=== PATIENT | female | born 1950 | race Caucasian/White ===

== ENCOUNTER → 2017-11-25 08:36 | Outpatient (CLI) | payer OTHER, SELFPAY ==
--- NOTE | 2017-11-25 08:38 | RAD_ITS ---
STUDY: X-RAY - RIGHT KNEE REASON FOR EXAM: Female, 67 years old. Knee pain. No known trauma. TECHNIQUE: 5 view(s) of the knee. COMPARISON: None. FINDINGS: There is mild generalized osteopenia. Normal visualized distal femur. Normal visualized proximal tibia and fibula. Normal proximal tibiofibular articulation. There is moderate arthrosis of the medial compartment. There is mild arthrosis of the lateral compartment. There is moderate arthrosis of the patellofemoral compartment. The soft tissue structures are unremarkable. RAD/Knee 4 or More Views IMPRESSION: Generalized osteopenia with tricompartmental arthrosis as described. Electronically Signed: Juancho Li MD at 16:21 EDT , Service support ,
== END ==
PROVIDERS: Family Provider Family Medicine; PCP Family Medicine; Visit Provider Orthopaedic Surgery
DX: M25.561 Pain in right knee (principal)
CPT/HCPCS: 73564

== ENCOUNTER → 2018-03-25 07:00 | Outpatient (CLI) | payer OTHER, SELFPAY ==
--- NOTE | 2018-03-25 07:00 | BI_ITS ---
MAMMOGRAPHY - BILATERAL SCREENING REASON FOR EXAM: Female, 67 years old. Routine annual screening examination. PERTINENT HISTORY: Sisters with breast cancer. Bilateral excisional breast biopsies. TECHNIQUE: Digital bilateral breast collette (3D mammographic acquisition) in the CC and MLO projections. 2-D mediolateral oblique (MLO) and craniocaudad (CC) views of both breasts were obtained. CAD: Full Field Digital Mammography with Computer Added Detection was performed. COMPARISON: Comparison is made with prior examination dated April 06, 2017. FINDINGS: Breast Composition: The breasts are heterogeneously dense, which may obscure small masses. Focal area of the calcifications in the deep superior aspect of the right breast as seen on the mediolateral oblique view only. These have increased in number as compared to prior study. The patient will be recalled for additional views including a 90 degree lateral view of the right breast as well as an exaggerated craniocaudad view of the right breast with magnification views. No other significant abnormalities are identified. BI/SCREENING MAMM (CAD), BILAT IMPRESSION: Increased number of calcifications in the deep upper portion of the right breast as described. This is not well seen on the craniocaudad view. The patient will be recalled for additional views. Recall Side: Right Breast ASSESSMENT CATEGORY: BIRADS Category 0: Incomplete. Need additional imaging evaluation. A letter regarding these results will be sent to the patient by the facility within 30 days. Approximately 10% of breast cancers are not detected by mammography. A normal mammogram should not delay biopsy of a clinically suspicious abnormality. [id number] Electronically Signed: Cal De Los Santos MD at 8:08 EST Tel [phone], Service support ,
== END ==
PROVIDERS: Family Provider Family Medicine; PCP Family Medicine; Referring Provider Family Medicine; Visit Provider Family Medicine
DX: Z12.31 Encounter for screening mammogram for malignant neoplasm of breast (principal)
CPT/HCPCS: 77063; 77067

== ENCOUNTER → 2018-03-28 14:02 | Outpatient (CLI) | payer OTHER, SELFPAY ==
--- NOTE | 2018-03-28 14:12 | BI_ITS ---
MAMMOGRAPHY - UNILATERAL DIAGNOSTIC: RIGHT BREAST REASON FOR EXAM: Female, 67 years old. Abnormal screening mammogram. PERTINENT HISTORY: Sisters with breast cancer. TECHNIQUE: Compression views of the right breast in the mediolateral oblique and craniocaudad views are obtained. Exaggerated craniocaudad view was obtained as well. CAD: Full Field Digital Mammography with Computer Added Detection was performed. COMPARISON: Comparison is made with prior mammogram dated March 25, 2018. FINDINGS: Breast Composition: The breasts are heterogeneously dense, which may obscure small masses. Once again, calcifications are seen in the superior deep outer aspect of the right breast. A biopsy is recommended for further evaluation. No other significant abnormalities are identified. BI/DIAG MAMM W/CAD, UNILAT IMPRESSION: Microcalcifications once again seen as described. A biopsy recommended for further evaluation. ASSESSMENT CATEGORY: BIRADS Category 4: Suspicious - Biopsy Should Be Considered. A letter regarding these results will be sent to the patient by the facility within 30 days. Approximately 10% of breast cancers are not detected by mammography. A normal mammogram should not delay biopsy of a clinically suspicious abnormality. Electronically Signed: Cal De Los Santos MD at 15:19 EST Tel [phone], Service support ,
== END ==
PROVIDERS: Family Provider Family Medicine; PCP Family Medicine; Referring Provider Family Medicine; Visit Provider Family Medicine
DX: R92.8 Other abnormal and inconclusive findings on diagnostic imaging of breast (principal)
CPT/HCPCS: 77065

== ENCOUNTER 2018-04-18 09:55 | Day surgery (SDC) | payer OTHER, SELFPAY ==
[2017-11-25 08:52] VITALS: BMI 34.5
[2018-04-13 13:44] LABS: Hematocrit 42.9 % (37-47); Hemoglobin 14.6 g/dl (12.0-15.0); Mean Corpuscular Hgb 30.7 pg (27.0-32.0); Mean Corpuscular Volume 90.1 fL (81-99); Mean Platelet Vol. 9.6 fl (6.2-12.0); Platelet Count 318 K/mm3 (150-450); RBC Distribution Width CV 12.9 % (11.6-14.6); RBC Distribution Width SD 42.2 fl (35.1-43.9); Red Blood Count 4.76 M/mm3 (4.2-5.4); White Blood Count 9.3 K/mm3 (4.4-11.0)
[2018-04-13 13:46] LABS: Scan Indicated on CBC? Y/N NO
[2018-04-13 13:50] LABS: Prothrombin Time (Protime)PT. 13.5 SECONDS (11.7-14.9)
[2018-04-13 13:51] LABS: Partial Thromboplast Time 32.2 Seconds (24.1-36.2)
[2018-04-13 14:02] LABS: AST(SGOT) 15 U/L (15-37); Alanine Aminotransfer ALT/SGPT 32 U/L (13-56); Alkaline Phosphatase 90 U/L (45-117); Anion Gap 8 (5-15); BUN 16 mg/dL (7-18); BUN/Creat Ratio 20.9 RATIO (10-20); Calcium,Total 9.4 mg/dL (8.5-10.1); Chloride 101 mmol/L (98-107); Creatinine, Serum 0.76 mg/dL (0.55-1.02); EST Glomerular Filtration Rate 81 mL/min (>60); Est Glom Filt Rate - Afr Amer 97 mL/min (>60); Globulin 3.9 g/dL (2.2-4.2); Glucose 88 mg/dL (74-106); Potassium 2.9 mmol/L (3.5-5.1); Protein, Total 7.9 g/dL (6.4-8.2); Sodium Level 139 mmol/L (136-145)
--- NOTE | 2018-04-16 14:45 | PCM.HP.BLA ---
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 -- Smptomatic Prolapse of Vagina -- Marine is referred per Dr Clement for vaginal prolapse. Pt relates she has been having difficulty with bowel movements. Pt relates she starts to go and then has to insert a finger into her vagina to be able to finish her BM. Pt had a KEARA/LSO per Dr Brower in 1993, and a vaginal wall repair per Dr Barrera in approx 1999. Associated signs and symptoms are Difficulty moving bowels.; Associated signs and symptoms are uses fingers every time. Additional comments are: had prior hyst in early then ?anterior repair per Dr. Barrera in 1999. MEDICATIONS HISTORY: Current medications prescribed by our practice are: 1. Estrace 0.01% (0.1 mg/gram) vaginal cream, one half gram per vagina twice weekly at hs Patient is also takin. triamterene 75 mg-hydrochlorothiazide 50 mg tablet, 3x/week 2. atorvastatin 20 mg tablet, One pill by mouth once a day ALLERGIES: No Known Drug Allergies Infections - Chicken pox childhood Illnesses - no serious past illnesses Accidents - None Hospitalizations - Childbirth and see surgery Review of Systems: GENERAL - Denies fever, or chills SKIN - Denies skin changes EYES - Denies visual changes EARS - Denies difficulty hearing NOSE - Denies nasal congestion or bleeding MOUTH - Denies sore throat or difficulty swallowing NECK - Denies pain or swelling RESPIRATORY - Denies shortness of breath or wheezing CARDIOVASCULAR - Denies palpitations or chest pain GASTROINTESTINAL - Denies nausea, vomiting, diarrhea, constipation GENITOURINARY - Denies dysuria, frequency of urination, incontinence of urine MUSCULOSKELETAL - Denies joint or muscle pain NEUROLOGICAL - Denies localized numbness or weakness PSYCHIATRIC - Denies depression or anxiety ENDOCRINE - Denies heat or cold intolerance, weight loss or gain HEMATO-IMMUNOLOGIC - Denies excesive bleeding with cuts SOCIAL HISTORY: Alcohol Use - denies drinking Smoking - denies smoking Diet - balanced Diet Lifestyle - moderate stress lifestyle and Exercise - regular Seat Belt Use - always 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 Basal Cell Carcinoma removed 2017 2. Tonsillectomy Dec 1968 3. KEARA/RSO, Feb 1992 ; MAGED 4. Appendectomy Dec 1993 5. cholecystectomy, Feb 1997 6. Faschial Release Rt [id number] 7. Multiple Breast Biopsies 8. Rt Rotator cuff repaired 2013 PHYSICAL EXAM BP- 136/84 Sitting, Right arm, regular cuff Weight- 178.47775 lbs Height- 61.5 inch BMI:33.16 CONSTITUTIONAL - NAD, well nourished, and well developed SKIN - No rash, lesions, or ulcers HEENT - Normocephalic, PERRLA, EOMI NECK - No nodes, no nuchal rigidity and thyroid normal size and texture LYMPH NODES - Palpation of lymph nodes in neck and groins within normal limits LUNGS - CTA x2 without wheezes, crackles or rales CARDIAC - Regular rate and rhythm without rubs, murmurs, or gallops ABDOMEN - Without hepatosplenomegaly, distention, masses, rebound, or guarding; normal bowel sounds; no hernias EXTREMITIES - No edema or calf tenderness NEUROLOGICAL - Cranial nerves II-XII grossly intact PSYCHIATRIC - A and O to time, place, person, mood and affect External Genital Vagina - non-tender without lesions Urethra/Urethral Meatus - non-tender Bladder - non-tender Vagina - loss of rugae and cystocele to introitus starting half way up vagina--well supported lower vagina; similar with rectocele but to within only 2 cm of introitus; ?enterocele Cervix - Prior hysterectomy-well healed vaginal cuff Uterus - prior hysterectomy-absent Adnexa - clear without masses or tenderness ASSESSMENT/PLAN: 1. Cystocele Midline, Rectocele and Vaginal Enterocele Discussed options including pessary use versus proceeding with AP Repair. Wants surgery. Discussed RBAs and will start intravaginal HRT. Not sexually active.
[2018-04-18] VITALS (11 sets, daily range): BP systolic 108–134; BP diastolic 51–64; PULSE 53–76; RESP 16–18; TEMP 36.3–37.4; O2SAT 92–100; BMI 32.2
[2018-04-18 10:38] LABS: Potassium 3.1 mmol/L (3.5-5.1)
--- NOTE | 2018-04-18 12:40 | VAGMU_PTH ---
PATIENT: TORI STYLES LOC: [facility] U#:[id number] AGE/SX: 67/F ROOM: RE04/18/[address]: Dr. Abebe Curz MD : 1950 BED: DIS: 04/19/2018 SPEC #: [id number] RECD: 04/19/18 10:42 STATUS: CHRISTIANO REFreida #: [id number] YOKASTA: 04/18/18 12:[address]: Abebe Cruz DEPT: SURGICAL PATHOLOGY RECD BY: Milo Barton ENTERED: 04/19/18 11:51 SP TYPE: VAG MUCOSA OT DR: Dr. Alex Clement MD Tissues: Vagina, NOS Procedures: Surgery Specimen Level II HEADER OPERATION: Anterior and posterior repair PRE-OP DIAGNOSIS: Cystocele, rectocele, vaginal enterocele TISSUE SUBMITTED: Vaginal mucosa MICROSCOPIC DIAGNOSIS Vaginal mucosa, anterior and posterior repair: Mild chronic inflammation. Focal parakeratosis and hyperkeratosis. AM:low 04/20/18 MICROSCOPIC DESCRIPTION Slides are reviewed. GROSS DESCRIPTION Received in fixative is one container labeled with the patient's name and designated vaginal mucosa. The specimen consists of five variable sized pieces of peerz mucosal tissue that in aggregate measure 4.5 x 4.5 x 0.5 cm. Review Nurse sections are submitted in one cassette. / SJ:low 04/19/18 TC:5 CPT: 15124
--- NOTE | 2018-04-18 15:55 | PCM.OPRPT ---
Report of Operation Date of Procedure: 04/18/18 Pre-Operative Diagnosis: Vaginal Vault Prolapse Post-Operative Diagnosis: Vaginal Vault Prolapse Surgery/Procedure Performed:: Anterior and Posterior Repair Description of Surgical Findings:: Cystocele which protruded to within 1 cm of the vaginal introitus. Small rectocele. fish hatchery laborer: Eugenie Weldon Type of Anesthesia:: General Anesthesiologist: Navarro Maldonado Specimen's removed: Vaginal Mucosa Drains: Addison to straight drain Estimated Blood Loss (mL): 50 cc Fluids Replaced: Crystalloid Description of Procedure: Surgeon: Abebe Cruz MD, [facility] OG Indications: This is a 67-year-old patient who is been having problems with prolapse and needing to use her fingers to help defecate. Conservative measures have not been helpful. Given this the patient desires that we proceed the above procedure. She has been counseled regarding the risk and indications of this procedure including the possibility of bleeding, infection, and injury to surrounding structures such as bowel bladder. All questions were answered. Procedure: Patient was taken to the operating room where after induction of general anesthesia she was placed in the dorsal lithotomy position and prepped and draped in the usual sterile fashion. The bladder was drained of approximately 50 cc of clear yellow urine with a Addison catheter which was left in place. Anterior vaginal mucosa was undermined and divided and then imbricated toward the midline with interrupted 0 Vicryl sutures. Vaginal mucosa was trimmed and then closed with interrupted 2-0 chromic suture. Vaginal cuff was then closed front to back with interrupted [id number] 0 Vicryl suture. Hemostasis was noted. Attention was turned toward the posterior repair portion of the procedure. Remnants of the hymenal ring were grasped with Allises and a V-shaped incision was made in the perineum. Rectovaginal mucosa was then undermined divided and then imbricated toward the midline with interrupted 0 Vicryl suture. Vaginal mucosa was trimmed and then closed with running locked 2-0 chromic suture. Remnants of the bulbocavernosus muscles were identified and brought toward the midline with a single [id number] 0 Vicryl suture and perineum was closed in the usual fashion with running and subcuticular, and ioxocz-gt-uykem 2-0 chromic suture. Hemostasis was noted. Addison catheter was opened and clear yellow urine was noted. Vagina was packed with iodoform tape. Patient tolerated the procedure well was taken to recovery room in satisfactory condition; sponge instrument and needle counts were all reportedly correct. Estimated blood loss for the case was 50 cc. Cefotan 2 g IV was given prior to beginning the operative procedure. There were no apparent complications of the surgery. Grafts/Implants Used: None - Complications None - Admit VTE Documentation VTE Present on Admission: Yes VTE Mechan Device Prophylaxis: SCD's VTE Pharm Prophylaxis ordered?: Yes
--- NOTE | 2018-04-18 16:00 | OP.PCM_ITS ---
Report of Operation Date of Procedure: 04/18/18 Pre-Operative Diagnosis: Vaginal Vault Prolapse Post-Operative Diagnosis: Vaginal Vault Prolapse Surgery/Procedure Performed:: Anterior and Posterior Repair Description of Surgical Findings:: Cystocele which protruded to within 1 cm of the vaginal introitus. Small rectocele. labor and delivery registered nurse: Eugenie Weldon Type of Anesthesia:: General Anesthesiologist: Navarro Maldonado Specimen's removed: Vaginal Mucosa Drains: Addison to straight drain Estimated Blood Loss (mL): 50 cc Fluids Replaced: Crystalloid Description of Procedure: Surgeon: Abebe Cruz MD, [facility] OG Indications: This is a 67-year-old patient who is been having problems with prolapse and needing to use her fingers to help defecate. Conservative measures have not been helpful. Given this the patient desires that we proceed the above procedure. She has been counseled regarding the risk and indications of this procedure including the possibility of bleeding, infection, and injury to surrounding structures such as bowel bladder. All questions were answered. Procedure: Patient was taken to the operating room where after induction of general anesthesia she was placed in the dorsal lithotomy position and prepped and draped in the usual sterile fashion. The bladder was drained of approximately 50 cc of clear yellow urine with a Addison catheter which was left in place. Anterior vaginal mucosa was undermined and divided and then imbricated toward the midline with interrupted 0 Vicryl sutures. Vaginal mucosa was trimmed and then closed with interrupted 2-0 chromic suture. Vaginal cuff was then closed front to back with interrupted [id number] 0 Vicryl suture. Hemostasis was noted. Attention was turned toward the posterior repair portion of the procedure. Remnants of the hymenal ring were grasped with Allises and a V-shaped incision was made in the perineum. Rectovaginal mucosa was then undermined divided and then imbricated toward the midline with interrupted 0 Vicryl suture. Vaginal mucosa was trimmed and then closed with running locked 2-0 chromic suture. Remnants of the bulbocavernosus muscles were identified and brought toward the midline with a single [id number]-[id number] 0 Vicryl suture and perineum was closed in the usual fashion with running and subcuticular, and dcmwgm-vz-jepns 2-0 chromic suture. Hemostasis was noted. Addison catheter was opened and clear yellow urine was noted. Vagina was packed with iodoform tape. Patient tolerated the procedure well was taken to recovery room in satisfactory condition; sponge instrument and needle counts were all reportedly correct. Estimated blood loss for the case was 50 cc. Cefotan 2 g IV was given prior to beginning the operative procedure. There were no apparent complications of the surgery. Grafts/Implants Used: None - Complications None - Admit VTE Documentation VTE Present on Admission: Yes VTE Mechan Device Prophylaxis: SCD's VTE Pharm Prophylaxis ordered?: Yes
--- NOTE | 2018-04-18 16:01 | DCINST_ITS ---
Discharge Diet: No Restrictions Discharge Activity: Return to Normal Activity, May Not Drive - while taking narcotic pain medications., May Shower May resume sexual activity in: 6-8 weeks Call your doctor if your incision/area has: Continuous Slow Oozing, Sudden Increased Bleeding, Increased Pain/ Swelling, Increased Redness, Foul Smelling Discharge Call your doctor if you observe: Fever of 101 or Higher, Inability to urinate, Inability to have a bowel movement, Using more than one pad per hour Allergies/Adverse Reactions: Allergies adhesive tape Adverse Reaction (Verified 04/11/18 14:32) redness Medications to take at Discharge triamterene 75 mg-hydrochlorothiazide 50 mg tablet 1 tab PO DAILY tab 11/25/17 Atorvastatin Calcium [Lipitor] 20 mg PO QHS 04/11/18 Multivitamin [Multiple Vitamins] 1 each PO DAILY 04/11/18 Potassium Chloride [K-Dur] 20 meq PO BID 04/15/18 Docusate Sodium [Colace] 100 mg PO BID PRN PRN #60 cap 04/18/18 Oxycodone [Oxyir] 5 mg PO Q6H PRN PRN 7 Days #14 tab 04/18/18 The following prescriptions were given: Oxycodone [Oxyir] 5 mg PO Q6H PRN PRN 7 Days #14 tab PRN Reason: Severe Pain (-02/23) Docusate Sodium [Colace] 100 mg PO BID PRN PRN #60 cap PRN Reason: Constipation Orders to be completed after discharge: Potassium Time Frame: 04/18/18, Location: Laboratory Primary Care Physician: Alex Clement MD [Primary Care Provider] - Test Results: Test results from this visit will be discussed in further detail at your follow- up appointment, if applicable. Please Follow Up With: Abebe Cruz MD When: 2-3 weeks
[2018-04-18] MEDS: Dextrose 5%-Lactated Ringers 1,000 ML 125 ML IV ×2 (16:57→21:53)
[2018-04-18] MEDS: Enoxaparin 30 MG/0.3 ML Syringe SC (20:11)
[2018-04-18] MEDS: Atorvastatin Calcium 20 MG Tablet PO (20:58)
[2018-04-18] MEDS: Ketorolac 15 MG/ML Vial IV (20:58)
--- NOTE | 2018-04-18 22:48 | NURSING ---
PT UP TO BATHROOM WITH ASST OF 1. GAIT STEADY. DENIES ANY COMPLAINTS
[2018-04-19] MEDS: Ketorolac 15 MG/ML Vial IV (02:56)
[2018-04-19 03:27] VITALS: BP 111/59; PULSE 56; RESP 18; TEMP 36.4; O2SAT 94
[2018-04-19 06:01] LABS: Hematocrit 35.1 % (37-47); Hemoglobin 11.7 g/dl (12.0-15.0); Mean Corp Hgb Conc 33.3 g/gl (32-36); Mean Corpuscular Hgb 30.6 pg (27.0-32.0); Mean Corpuscular Volume 91.9 fL (81-99); Mean Platelet Vol. 9.3 fl (6.2-12.0); Platelet Count 241 K/mm3 (150-450); RBC Distribution Width CV 12.3 % (11.6-14.6); RBC Distribution Width SD 40.2 fl (35.1-43.9); Red Blood Count 3.82 M/mm3 (4.2-5.4); White Blood Count 11.2 K/mm3 (4.4-11.0)
[2018-04-19 06:08] LABS: Scan Indicated on CBC? Y/N NO
[2018-04-19 06:11] LABS: Creatinine, Serum 0.95 mg/dL (0.55-1.02); EST Glomerular Filtration Rate 63 mL/min (>60); Est Glom Filt Rate - Afr Amer 76 mL/min (>60); Estimated Creatinine Clearance 46.69 ml/min
[2018-04-19 07:10] VITALS: O2SAT 92
--- NOTE | 2018-04-19 08:20 | PCM.PN.OB ---
Subjective: Patient without complaints. Tolerating diet well. Minimal vaginal bleeding overnight. Pain well controlled. - Physical Exam Vital Signs AF, VSS Temp Pulse Resp BP Pulse Ox 97.5 F L 56 L 18 111/59 L 94 04/19/18 03:27 04/19/18 03:27 04/19/18 03:27 04/19/18 03:27 04/19/18 03:27 Oxygen Flow Rate (L/min) 1 Oxygen Delivery Method Room Air Weight: 176 lb 5.917 oz Body Mass Index (BMI) 32.2 Intake and Output for Last 24 Hours 04/17/18 04/18/18 04/19/18 23:59 23:59 23:59 Intake Total 2745 / 2745 3007 / 3007 Output Total 235 / 235 1800 / 1800 Balance 2510 / 2510 1207 / 1207 Laboratory Tests Past 24 Hrs 04/18/18 04/19/18 04/19/18 10:15 05:40 05:40 WBC 11.2 H RBC 3.82 L Hgb 11.7 L Hct 35.1 L MCV 91.9 MCH 30.6 MCHC 33.3 RDW 12.3 RDW Differential 40.2 Plt Count 241 MPV 9.3 Potassium 3.1 L Creatinine 0.95 Estim Creat Clear Calc 46.69 Est GFR (MDRD) Af Amer 76 Est GFR (MDRD) Non-Af 63 Vaginal pack removed with minimal bleeding noted. Hemoglobin and creatinine okay. Medical Necessity - Tobacco Use Smoking Status: Never smoker Tobacco Use: Non-smoker Assessment/Plan Doing well postoperative day #1 status post anterior posterior repair. We will release to home with routine instructions.
[2018-04-19 08:45] VITALS: BP 132/54; PULSE 73; RESP 18; TEMP 36.7; O2SAT 96
[2018-04-19] MEDS: Triamterene 75MG/Hctz 50MG Tablet 1 TABLET PO (08:47)
[2018-04-19] MEDS: Ketorolac 10 MG Tablet PO (10:13)
--- OUTSIDE RECORDS SUMMARY | 2018-06-11 14:41 | XMS RPT_ITS ---
:1950 Author Organization OHIP Support Name Relationship Address Phone MARIAJOSE STYLES Unavailable [address] + [place] [address] MARIAJOSE STYLES Unavailable [address] + [place] [address] MARIAJOSE STYLES Unavailable [address] + [place] [address] MARIAJOSE STYLES Unavailable [address] + [place] [address] MEG BUI Un[address] + [place] [address] MARY ALICE STYLES Unavailable [address] + [place] [address] [employer] Unavailable [address] + [place] [address] MARIAJOSE STYLES Unavailable [address] + [place] [address] MARIAJOSE STYLES Unavailable [address] + [place] [address] MARY ALICE STYLES Unavailable [address] + [place] [address] MARY ALICE STYLES Unavailable [address] [place] [address] NOT GIVEN Unavailable Unavailable Unavailable ME[facility] B[facility] Unavailable [address] + [place] [address] MARY ALICE STYLES Unavailable [address] + [place] [address] [employer] Unavailable [address] + [place] [address] ME[employer] B[employer] Un[address] + [place] [address] MARY ALICE STYLES Unavailable [address] + [place] [address] [employer] Unavailable [address] + [place] [address] MARY ALICE STYLES Unavailable [address] + [place] [address] MARY ALICE STYLES Unavailable [place] [address] NOT GIVEN Unavailable Unavailable Unavailable MARY ALICE STYLES Unavailable [address] + [place] [address] MARY ALICE STYLES Unavailable [address] [place] [address] NOT GIVEN Unavailable Unavailable Unavailable HAO [facility] Unavailable [address] + [place] [address] MARY ALICE STYLES Unavailable [address] + [place] [address] [employer] Unavailable [address] + [place] [address] HAO, MEG Unavailable [address] + [place] [address] MARY ALICE STYLES Unavailable [address] + [place] [address] [employer] Unavailable [address] + [place] [address] MARY ALICE STYLES Unavailable [address] + [place] [address] MARY ALICE STYLES Unavailable [address] [place] [address] NOT GIVEN Unavailable Unavailable Unavailable Care Team Providers Name Role Phone LOBO, DENIZ A Admitting Unavailable LOBO, DENIZ A Attending Unavailable LOBO, DENIZ A Primary Care Unavailable LOBO, DENIZ A Consulting Unavailable PROVIDER, UNKNOWN Consulting Unavailable PROVIDER, UNKNOWN Consulting Unavailable PROVIDER, UNKNOWN Consulting Unavailable LOBO, DENIZ A Admitting Unavailable LOBO, DENIZ A Attending Unavailable LOBO, DENIZ A Primary Care Unavailable LOBO, DENIZ A Consulting Unavailable PROVIDER, UNKNOWN Consulting Unavailable PROVIDER, UNKNOWN Consulting Unavailable PROVIDER, UNKNOWN Consulting Unavailable LOBO, DENIZ A Admitting Unavailable LOBO, DENIZ A Attending Unavailable LOBO, DENIZ A Primary Care Unavailable LOBO, DENIZ A Consulting Unavailable PROVIDER, UNKNOWN Consulting Unavailable PROVIDER, UNKNOWN Consulting Unavailable PROVIDER, UNKNOWN Consulting Unavailable ARNULFO, LLOYD Admitting Unavailable ARNULFO, LLOYD Attending Unavailable ARNULFO, LLOYD Primary Care Unavailable LOBO, DENIZ A Consulting Unavailable PROVIDER, UNKNOWN Consulting Unavailable PROVIDER, UNKNOWN Consulting Unavailable PROVIDER, UNKNOWN Consulting Unavailable MILIND ALBERTS Attending Unavailable DENIZ LOBO MD Primary Care Unavailable MILIND ALBERTS Attending Unavailable LASHELL FERRER, DENIZ Paez Primary Care Unavailable MILIND ALBERTS Attending Unavailable DENIZ LOBO MD Primary Care Unavailable Katy Molina Attending Unavailable Lashell, Deniz Referring Unavailable Chicorelli, Katy Attending Unavailable Chicorelli, Katy Referring Unavailable Lobo, Deniz Primary Care Unavailable Lobo, Deniz Attending Unavailable Lobo, Deniz Referring Unavailable Lobo, Deniz Primary Care Unavailable Lobo, Deniz Attending Unavailable Lobo, Deniz Referring Unavailable Lobo, Deniz Primary Care Unavailable Abebe Cruz Attending Unavailable Nancy, Abebe Referring Unavailable Lobo, Deniz Primary Care Unavailable PROBLEMS PROBLEMS DATE TYPE CONDITION / CODE ATTENDING STATUS SOURCE 04/19/2018 Unknown G89.18 - Other acute Abebe Cruz Active [place] postprocedural pain [facility] / G89.18(ICD-10) Hospital Repository 11/25/2017 Unknown M25.561 - Pain in [place], Active [place]ret[place] right knee / Katy [facility] M25.561(ICD-10) Hospital Repository PROCEDURES PROCEDURES No Procedure Records FoundRESULTS RESULTS MRI BREAST W/ + W/O Observed: 04/27/2018 Status: F Source: [facility] 9:45 PM [facility] REPOSITORY ORIGINAL FROM: [place] [address] PROCEDURE FOR: MARINE STYLES [address] [place] [address] [place] [address] Home: PID#: [id number] Exam#: [id number] : 1950 Age: 67 TO: MILIND ALBERTS MD [address] [address] #[id number] BREAST MRI OF BOTH BREASTS- WITH CAD: 04/27/2018 CLINICAL: BREAST CALCIFICATIONS. Comparison is made to exams dated: 04/14/2018 stereotactic biopsy - [facility], 03/28/2018 mammogram, 03/25/2018 mammogram - [facility], and 04/06/2017 mammogram - [facility]. Gadolinium contrast calibrated to patient weight was injected. Axial T2 and pre and post contrast T1 images were obtained. Post processing was performed including computer generated subtraction, color p arametric mapping, and 3D multiplanar reconstruction. Bilateral background breast enhancement is mild. Current study was also evaluated with a Computer Aided Detection (CAD) system. No enhancing mass is seen in either breast. No enlarged axillary or internal mammary nodes are seen. A incidental 1.6 cm right thyroid nodule is seen. IMPRESSION: PROBABLY BENIGN Negative exam. No evidence of a breast carcinoma measuring 3 mm in size or greater. A follow-up right diagnostic mammogram in 6 months is recommended to demonstrate stability of the calcifications.(10/27/2018) Incidental right thyroid nodule. An ultrasound of the thyroid is recommended. I have personally reviewed the images of the examination and agree with the findings and interpretation. [place] HUGO VILLASEÑOR M.D. ab,da/:04/28/2018 13:27:15 Refueling Ramp Attendant(s): RT JESSICA(R), [facility] letter sent: Probably Benign BI-RADS 3 MRI BI-RADS: 3 Probably benign CBC-COMPLETE BLOOD CNT Collected: 04/19/2018 Status: F Source: [place] NO DIFF 5:40 AM [facility] REPOSITORY TYPE CODE TESTS RESULT OUT OF RANGE REFERENCE UNITS LAB L100.1000 4.4-11.0 K/mm3 High WBC 11.2 LAB L100.1200 4.2-5.4 M/mm3 Low RBC 3.82 LAB L100.1300 12.0-15.0 g/dl Low HGB 11.7 LAB L100.1400 37-47 % Low HCT 35.1 LAB L100.1500 81-99 fL Normal MCV 91.9 LAB L100.1600 27.0-32.0 pg Normal MCH 30.6 LAB L100.1700 32-36 g/gl Normal MCHC 33.3 LAB L100.1810 11.6-14.6 % Normal RDW CV 12.3 LAB L100.1820 35.1-43.9 fl Normal RDW SD 40.2 LAB L100.1900 150-450 K/mm3 Normal PLT 241 LAB L100.2000 6.2-12.0 fl Normal MPV 9.3 Performed By: #### L100.0500 #### [facility] [address] [place], [address] SERUM CREATININE AND Collected: 04/19/2018 Status: F Source: [place] GFR 5:40 AM [facility] REPOSITORY TYPE CODE TESTS RESULT OUT OF RANGE REFERENCE UNITS LAB L501.1100 0.55-1.02 mg/dL Normal 0.95 CREAT,SERUM Result Comment: The validity of the calculated GFR AND GFRAA in patients over 70 years has not been determined. Clinical correlation is essential. LAB L501.1110 >60 mL/min Normal EST GFR 63 Result Comment: Non- GFR Calc LAB L501.1115 >60 mL/min Normal EST GFR - AA 76 Result Comment: GFR Calc LAB L501.1255 ml/min Normal Estimated CRCL 46.69 Performed By: #### L501.1105 #### [facility] [address] [place], [address] DISCHARGE INSTRUCTION Observed: 04/18/2018 Status: F Source: [place] 4:01 PM [facility] REPOSITORY [facility] Medical Records Department [address] [facility] [place] [address] Instructions for Home/Discharge Instructions 04/18/18 1601 MR#: [id number] Acct: [id number] Name: MARINE STYLES Rep #: [id number] : 1950 67 From: Abebe Cruz MD PCP: Deniz Lobo MD Status: REG [facility] Discharge Diet: No Restrictions Discharge Activity: Return to Normal Activity, May Not Drive - while taking narcotic pain medications., May Shower May resume sexual activity in: 6-8 weeks Call your doctor if your incision/area has: Continuous Slow Oozing, Sudden Increased Bleeding, Increased Pain/ Swelling, Increased Redness, Foul Smelling Discharge Call your doctor if you observe: Fever of 101 or Higher, Inability to urinate, Inability to have a bowel movement, Using more than one pad per hour Allergies/Adverse Reactions: Allergies adhesive tape Adverse Reaction (Verified 04/11/18 14:32) redness Medications to take at Discharge triamterene 75 mg-hydrochlorothiazide 50 mg tablet 1 tab PO DAILY tab 11/25/17 Atorvastatin Calcium [Lipitor] 20 mg PO QHS 04/11/18 Multivitamin [Multiple Vitamins] 1 each PO DAILY 04/11/18 Potassium Chloride [K-Dur] 20 meq PO BID 04/15/18 Docusate Sodium [Colace] 100 mg PO BID PRN PRN #60 cap 04/18/18 Oxycodone [Oxyir] 5 mg PO Q6H PRN PRN 7 Days #14 tab 04/18/18 The following prescriptions were given: Oxycodone [Oxyir] 5 mg PO Q6H PRN PRN 7 Days #14 tab PRN Reason: Severe Pain (-02/23) Docusate Sodium [Colace] 100 mg PO BID PRN PRN #60 cap PRN Reason: Constipation Orders to be completed after discharge: Potassium Time Frame: 04/18/18, Location: [facility] Primary Care Physician: Deniz Lobo MD [Primary Care Provider] - Test Results: Test results from this visit will be discussed in further detail at your follow-up appointment, if applicable. Please Follow Up With: Abebe Cruz MD When: 2-3 weeks 04/18/18 1601 <Electronically signed by Abebe Cruz MD> Date Abebe Cruz MD CC: Deniz Lobo MD OPERATIVE REPORT Observed: 04/18/2018 Status: F Source: [place] 4:00 PM [facility] REPOSITORY [facility] Medical Records Department [address] [place] [address] Operative Report 04/18/18 1555 MR#: [id number] Acct: [id number] Name: MARINE STYLES Rep #: [id number] : 1950 67 From: Abebe Cruz MD PCP: Deniz Lobo MD Status: REG [facility] Location: [place] [address] Report of Operation Date of Procedure: 04/18/18 Pre-Operative Diagnosis: Vaginal Vault Prolapse Post-Operative Diagnosis: Vaginal Vault Prolapse Surgery/Procedure Performed:: Anterior and Posterior Repair Description of Surgical Findings:: Cystocele which protruded to within 1 cm of the vaginal introitus. Small rectocele. produce department supervisor: Eugenie Weldon Type of Anesthesia:: General Anesthesiologist: Navarro Maldonado Specimen's removed: Vaginal Mucosa Drains: Addison to straight drain Estimated Blood Loss (mL): 50 cc Fluids Replaced: Crystalloid Description of Procedure: Surgeon: Abebe Cruz MD, [facility] OG Indications: This is a 67-year-old patient who is been having problems with prolapse and needing to use her fingers to help defecate. Conservative measures have not been helpful. Given this the patient desires that we proceed the above procedure. She has been counseled regarding the risk and indications of this procedure including the possibility of bleeding, infection, and injury to surrounding structures such as bowel bladder. All questions were answered. Procedure: Patient was taken to the operating room where after induction of general anesthesia she was placed in the dorsal lithotomy position and prepped and draped in the usual sterile fashion. The bladder was drained of approximately 50 cc of clear yellow urine with a Addison catheter which was left in place. Anterior vaginal mucosa was undermined and divided and then imbricated toward the midline with interrupted 0 Vicryl sutures. Vaginal mucosa was trimmed and then closed with interrupted 2-0 chromic suture. Vaginal cuff was then closed front to back with interrupted [id number]-[id number] 0 Vicryl suture. Hemostasis was noted. Attention was turned toward the posterior repair portion of the procedure. Remnants of the hymenal ring were grasped with Allises and a V-shaped incision was made in the perineum. Rectovaginal mucosa was then undermined divided and then imbricated toward the midline with interrupted 0 Vicryl suture. Vaginal mucosa was trimmed and then closed with running locked 2-0 chromic suture. Remnants of the bulbocavernosus muscles were identified and brought toward the midline with a single [id number]-vlgbc 0 Vicryl suture and perineum was closed in the usual fashion with running and subcuticular, and opzocs-dm-yfvtg 2-0 chromic suture. Hemostasis was noted. Addison catheter was opened and clear yellow urine was noted. Vagina was packed with iodoform tape. Patient tolerated the procedure well was taken to recovery room in satisfactory condition; sponge instrument and needle counts were all reportedly correct. Estimated blood loss for the case was 50 cc. Cefotan 2 g IV was given prior to beginning the operative procedure. There were no apparent complications of the surgery. Grafts/Implants Used: None - Complications None - Admit VTE Documentation VTE Present on Admission: Yes VTE Mechan Device Prophylaxis: SCD's VTE Pharm Prophylaxis ordered?: Yes 04/18/18 1600 <Electronically signed by Abebe Cruz MD> Date Abebe Cruz MD CC: Abebe Cruz MD; Deniz Lobo MD Signed VAGINAL MUCOSA Observed: 04/18/2018 Status: F Source: [place] 12:40 PM [facility] REPOSITORY Patient: MARINE STYLES : 1950 (67/F) Acct Num: [id number] Phys: Nancy FERRER,Abebe Unit Num: [id number] Loc: [facility] Specimen: [id number] Received: 04/19/181041 Spec Type: VAG MUCOSA TISSUES 1 TISSUES: Vagina, NOS GROSS DESCRIPTION Received in fixative is one container labeled with the patient's name and designated vaginal mucosa. The specimen consists of five variable sized pieces of perez mucosal tissue that in aggregate measure 4.5 x 4.5 x 0.5 cm. Reservations And Ticketing Agent sections are submitted in one cassette. / SJ:low 04/19/18 TC:5 CPT: 08633 HEADER OPERATION: Anterior and posterior repair PRE-OP DIAGNOSIS: Cystocele, rectocele, vaginal enterocele TISSUE SUBMITTED: Vaginal mucosa MICROSCOPIC DESCRIPTION Slides are reviewed. MICROSCOPIC DIAGNOSIS Vaginal mucosa, anterior and posterior repair: Mild chronic inflammation. Focal parakeratosis and hyperkeratosis. AM:lwo 04/20/18 Signed [facility] 04/20/18 <signature on file> Performed By: #### PVAGMU #### [facility] [address] [place], [address] POTASSIUM Collected: 04/18/2018 Status: F Source: [place] 10:15 AM [facility] REPOSITORY TYPE CODE TESTS RESULT OUT OF RANGE REFERENCE UNITS LAB L501.5600 3.5-5.1 mmol/L Low K 3.1 Performed By: #### L501.5600 #### [facility] [address] [place], [address] HISTORY AND PHYSICAL Observed: 04/16/2018 Status: F Source: [place] EXAM 2:48 PM [facility] REPOSITORY [facility] Medical Records Department [address] [address] History and Physical 04/16/18 1445 MR#: [id number] Acct: [id number] Name: MARINE STYLES Rep #: [id number] : 1950 67 From: Abebe Cruz MD PCP: Deniz Lobo MD Status: PRE [facility] Y Location: [facility] History and Physical Date of Admission: 04/18/18 Surgical History and Physical Marine Styles, a 67 year old female 3 0 0 0 3, presents for A and P repair on April 18, 2018 at 1:00. -- Smptomatic Prolapse of Vagina -- Marine is referred per Dr Lobo for vaginal prolapse. Pt relates she has been having difficulty with bowel movements. Pt relates she starts to go and then has to insert a finger into her vagina to be able to finish her BM. Pt had a KEARA/LSO per Dr Brower in 1993, and a vaginal wall repair per Dr Barrera in approx 1999. Associated signs and symptoms are Difficulty moving bowels.; Associated signs and symptoms are uses fingers every time. Additional comments are: had prior hyst in early then ?anterior repair per Dr. Barrera in 1999. MEDICATIONS HISTORY: Current medications prescribed by our practice are: 1. Estrace 0.01% (0.1 mg/gram) vaginal cream, one half gram per vagina twice weekly at Patient is also takin. triamterene 75 mg-hydrochlorothiazide 50 mg tablet, 3x/week 2. atorvastatin 20 mg tablet, One pill by mouth once a day ALLERGIES: No Known Drug Allergies Infections - Chicken pox childhood Illnesses - no serious past illnesses Accidents - None Hospitalizations - Childbirth and see surgery Review of Systems: GENERAL - Denies fever, or chills SKIN - Denies skin changes EYES - Denies visual changes EARS - Denies difficulty hearing NOSE - Denies nasal congestion or bleeding MOUTH - Denies sore throat or difficulty swallowing NECK - Denies pain or swelling RESPIRATORY - Denies shortness of breath or wheezing CARDIOVASCULAR - Denies palpitations or chest pain GASTROINTESTINAL - Denies nausea, vomiting, diarrhea, constipation GENITOURINARY - Denies dysuria, frequency of urination, incontinence of urine MUSCULOSKELETAL - Denies joint or muscle pain NEUROLOGICAL - Denies localized numbness or weakness PSYCHIATRIC - Denies depression or anxiety ENDOCRINE - Denies heat or cold intolerance, weight loss or gain HEMATO-IMMUNOLOGIC - Denies excesive bleeding with cuts SOCIAL HISTORY: Alcohol Use - denies drinking Smoking - denies smoking Diet - balanced Diet Lifestyle - moderate stress lifestyle and Exercise - regular Seat Belt Use - always Employer - [employer] 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 Basal Cell Carcinoma removed 2017 2. Tonsillectomy Dec 1968 3. KEARA/RSO, Feb 1992 ; MAGED 4. Appendectomy Dec 1993 5. cholecystectomy, Feb 1997 6. Faschial Release Rt [id number] 7. Multiple Breast Biopsies 8. Rt Rotator cuff repaired 2013 PHYSICAL EXAM BP- 136/84 Sitting, Right arm, regular cuff Weight- 178.32687 lbs Height- 61.5 inch BMI:33.16 CONSTITUTIONAL - NAD, well nourished, and well developed SKIN - No rash, lesions, or ulcers HEENT - Normocephalic, PERRLA, EOMI NECK - No nodes, no nuchal rigidity and thyroid normal size and texture LYMPH NODES - Palpation of lymph nodes in neck and groins within normal limits LUNGS - CTA x2 without wheezes, crackles or rales CARDIAC - Regular rate and rhythm without rubs, murmurs, or gallops ABDOMEN - Without hepatosplenomegaly, distention, masses, rebound, or guarding; normal bowel sounds; no hernias EXTREMITIES - No edema or calf tenderness NEUROLOGICAL - Cranial nerves II-XII grossly intact PSYCHIATRIC - A and O to time, place, person, mood and affect External Genital Vagina - non-tender without lesions Urethra/Urethral Meatus - non-tender Bladder - non-tender Vagina - loss of rugae and cystocele to introitus starting half way up vagina--well supported lower vagina; similar with rectocele but to within only 2 cm of introitus; ?enterocele Cervix - Prior hysterectomy-well healed vaginal cuff Uterus - prior hysterectomy-absent Adnexa - clear without masses or tenderness ASSESSMENT/PLAN: 1. Cystocele Midline, Rectocele and Vaginal Enterocele Discussed options including pessary use versus proceeding with AP Repair. Wants surgery. Discussed RBAs and will start intravaginal HRT. Not sexually active. 04/16/18 1448 <Electronically signed by Abebe Cruz MD> Date Abebe Cruz MD Cosigner Signature: Date (if applicable) CC: Abebe Cruz MD; Deniz Lobo MD Signed MA STEREOTACTIC BIOPSY Observed: 04/14/2018 Status: F Source: [place] RIGHT 1ST LESION 9:00 AM [facility] REPOSITORY ORIGINAL FROM: [place] [address] PROCEDURE FOR: MARINE STYLES [address] [place] [address] [place] [address] Home: PID#: [id number] Exam#: [id number] : 1950 Age: 67 TO: MILIND ALBERTS MD [address] [place] [address] #[id number] STEREOTACTIC GUIDED BIOPSY RIGHT BREAST: 04/14/2018 CLINICAL: CALCIFICATIONS RIGHT BREAST. Comparison is made to exams dated: 03/28/2018 mammogram, 03/25/2018 mammogram - [facility], and 04/06/2017 mammogram - [facility]. A stereotactic guided biopsy was attempted for the 8 mm area of calcifications located in the right breast at 3 o'clock posterior depth. This was described on the previous mammography report. The skin w as prepped in the usual manner. The procedure was terminated due to the abnormality not being amenable to biopsy due to its posterior position. IMPRESSION: STEREOTACTIC GUIDED BIOPSY Stereotactic guided biopsy of the 8 mm area of calcifications in the right breast posterior depth was terminated. Surgical biopsy is recommended. Since positioning for a wire localization may be difficu lt, an MRI could alternatively be performed. I have personally reviewed the images of the examination and agree with the findings and interpretation. JAGDISH VILLASEÑOR M.D. vfg,da/:04/14/2018 10:09:43 Refueling Ramp Attendant(s): RT FRANK(R)(M), [facility] letter sent: Biopsy Recommended BI-RADS 4&5 CBC-COMPLETE BLOOD CNT Collected: 04/13/2018 Status: F Source: [place] NO DIFF 12:21 PM [facility] REPOSITORY TYPE CODE TESTS RESULT OUT OF RANGE REFERENCE UNITS LAB L100.1000 4.4-11.0 K/mm3 Normal WBC 9.3 LAB L100.1200 4.2-5.4 M/mm3 Normal RBC 4.76 LAB L100.1300 12.0-15.0 g/dl Normal HGB 14.6 LAB L100.1400 37-47 % Normal HCT 42.9 LAB L100.1500 81-99 fL Normal MCV 90.1 LAB L100.1600 27.0-32.0 pg Normal MCH 30.7 LAB L100.1700 32-36 g/gl Normal MCHC 34.0 LAB L100.1810 11.6-14.6 % Normal RDW CV 12.9 LAB L100.1820 35.1-43.9 fl Normal RDW SD 42.2 LAB L100.1900 150-450 K/mm3 Normal PLT 318 LAB L100.2000 6.2-12.0 fl Normal MPV 9.6 Performed By: #### L100.0500 #### [facility] [address] [place], [address] PROTHROMBIN TIME W/INR Collected: 04/13/2018 Status: F Source: [place] 12:21 PM [facility] REPOSITORY TYPE CODE TESTS RESULT OUT OF RANGE REFERENCE UNITS LAB L300.4150 11.7-14.9 SECONDS Normal PROTIME 13.5 LAB L300.4200 Normal INR 1.0 Performed By: #### L300.3900, L300.4310 #### [facility] [address] [place], [place], [address] PARTIAL THROMBOPLAST Collected: 04/13/2018 Status: F Source: [place] TIME 12:21 PM [facility] REPOSITORY TYPE CODE TESTS RESULT OUT OF RANGE REFERENCE UNITS LAB L300.4310 24.1-36.2 Seconds Normal PTT 32.2 Performed By: #### L300.3900, L300.4310 #### [facility] [address] [place], [place], [address] COMPREHENSIVE METABOLIC Collected: 04/13/2018 Status: F Source: [place] PROFIL 12:21 PM [facility] REPOSITORY TYPE CODE TESTS RESULT OUT OF RANGE REFERENCE UNITS LAB L501.0100 74-106 mg/dL Normal GLU 88 Result Comment: Please note revised GLUCOSE reference range effective 2017. LAB L501.1000 7-18 mg/dL Normal BUN 16 LAB L501.1100 0.55-1.02 mg/dL Normal CREAT,SERUM 0.76 Result Comment: The validity of the calculated GFR AND GFRAA in patients over 70 years has not been determined. Clinical correlation is essential. LAB L501.1110 >60 mL/min Normal EST GFR 81 Result Comment: Non- GFR Calc LAB L501.1115 >60 mL/min Normal EST GFR - AA 97 Result Comment: GFR Calc LAB L501.1300 10-20 RATIO High BUN/CRE 20.9 LAB L501.1500 6.4-8.2 g/dL T Normal PROT 7.9 LAB L501.1800 3.2-5.0 g/dL Normal ALB 4.0 LAB L501.1950 2.2-4.2 g/dL Normal GLOB 3.9 LAB L501.2000 0.9-2.4 RATIO Normal A/G 1.0 LAB L501.2200 8.5-10.1 mg/dL CA Normal 9.4 LAB L501.4100 15-37 U/L Normal AST 15 LAB L501.4305 45-117 U/L Normal ALK P 90 LAB L501.4405 13-56 U/L Normal ALT 32 LAB L501.4600 0.20-1.00 mg/dL T Normal BILI 0.80 LAB L501.5300 136-145 mmol/L NA Normal 139 LAB L501.5600 3.5-5.1 mmol/L Low K 2.9 LAB L501.5900 98-107 mmol/L CL Normal 101 LAB L501.6100 21.0-32.0 mmol/L Normal CO2 30.0 LAB L501.6200 5-15 Normal GAP 8 Performed By: #### L500.4050 #### [facility] [address] [place], [address] TYPE AND SCREEN Collected: 04/13/2018 Status: F Source: [place] 12:21 PM [facility] REPOSITORY Order Comment: Surgery Date: 04/18/18 Hx of Preganancy in last 3 Months No Ever experience any problems with transfusion(s)? N Hx of Transfusion in last 3 Months N Reason for Type AND Screen/Red Cells: SURGERY SURGICAL PROCEDURE: A AND P REPAIR TYPE CODE TESTS RESULT OUT OF RANGE REFERENCE UNITS LAB B10.0800 A Normal BLOOD TYPE GEL POSITIVE LAB B100.4000 Normal Antibody NEGATIVE Screen Performed By: #### B101.7475 #### [facility] [address] [place], [place], [address] CV ECHO COMPLETE Observed: 03/31/2018 Status: F Source: [place] 1:[address] [address] Patient: MARINE STYLES Phone#: : 1950 Age: 67 Gender: F MRN: [id number] Pt. Type: Out Account: [id number] Location: Ordering: LLOYD ARREDONDO Exam Date: 03/31/2018/11:04 Family Phys: DENIZ LOBO Charge Code: [id number] Physician: Edmunds Order #: [id number] DLP Dose#: PROCEDURE: ECHOCARDIOGRAM WITH DOPPLER AND COLOR FLOW HISTORY: 67-year-old female with history of hypertension, dyslipidemia, chronic left bundle branch block INDICATIONS: Syncope TECHNIQUE: A 2-D ultrasound, color spectral Doppler and M-mode evaluation of the heart and great vessels. PATIENT MEASUREMENTS: Height (in.): 62 BSA: 1.9 Weight (lbs.): 184 BP: 165/79 Kennel Worker: EMMA M MODE 2D MEASUREMENTS AND CALCULATIONS: LVIDd: 4.56 cm LVIDs: 2.55 cm IVSd: 1.28 cm LVPWd: 1.07 cm FS: 44.10 % Ao Root diam: 3.26 cm LA diam: 2.92 cm LA Volume Index: 28.8 mL/m2 LA A4 Area: 19 cm RA A4 Area: 11.1 cm2 RVDd: 2.36 cm TAPSE: 16 mm DOPPLER MEASUREMENTS AND CALCULATIONS MITRAL MV E MAX chente: 88.73 cm/s MV A MAX chente: 105.45 cm/s MV E-A ratio: 0.84 Lat Peak E' Chente 8 cm/s Continued Report - Page 2 of 3 Patient: MARINE STYLESCalin Phone#: : 1950 Age: 67 Gender: F MRN: [id number] Pt. Type: Out Account: [id number] [facility] Ex[facility] Date: 03/31/2018/11:04 Family Phys: DENIZ LOBO Charge Code: [id number] Physician: Edmunds Order #: [id number] DLP Dose#: Septal Peak E' CHENTE 5 cm/s Lateral E./E.' 11 Medial E./E.' 19 AORTIC Ao V2 max: 145.39 cm/s Ao max P.46 mm[Hg] LV V1 Max 101.81 cm/s LV V1 Max PG 4.15 mm[Hg] PULMONIC PA V2 Max 119.59 cm/s PA Max PG 5.72 mm[Hg] TRICUSPID TR Max Chente 256.53 cm/s TR max PG 26.33 mm[Hg] RVSP 29 mmHg 2D/M-MODE AND COLOR FLOW LEFT VENTRICLE: Mild concentric left ventricle hypertrophy with sigmoid septum. Abnormal septal motion likely due to underlying left bundle branch block. Mild left ventricle systolic dysfunction, ejection fraction 45%. Average global longitudinal strain -15.6%. Grade 1 diastolic dysfunction. WALL MOTION: 1 - Basal anterior: Normal. 7 - Mid anterior: Normal. 13 - Apical anterior: Normal. 2 - Basal anteroseptal: Hypokinetic. 8 - Mid anteroseptal: Hypokinetic. 14 - Apical septal: Hypokinetic. 3 - Basal inferoseptal: Hypokinetic. 9 - Mid inferoseptal: Hypokinetic. 15 - Apical inferior: Normal. 4 - Basal inferior: Normal. 10-Mid inferior: Normal. 16 - Apical lateral: Normal. 5 - Basal inferolateral: Normal. 11-Mid inferolateral: Normal. 6 - Basal anterolateral: Normal. 12-Mid anterolateral: Normal. RIGHT VENTRICLE: Normal size and systolic function. Prominent moderator band noted. LEFT ATRIUM: Normal RIGHT ATRIUM: Normal MITRAL VALVE: Mild mitral annular calcification with mildly thickened mitral valve leaflets with normal leaflet mobility. Mild mitral regurgitation. TRICUSPID VALVE: Normal leaflet structure and mobility. Trace tricuspid regurgitation. AORTIC VALVE: Trileaflet aortic valve with normal leaflet structure and mobility. Mild aortic sclerosis no significant aortic stenosis. PULMONIC VALVE: Normal leaflet structure and mobility. Trace pulmonic insufficiency. AORTIC ROOT: Normal IVC/SVC: Normal size and normal respirophasic response PULMONARY VEINS: Normal flow pattern PERICARDIUM: No significant pericardial effusion Continued Report - Page 3 of 3 Patient: MARINE STYLES Phone#: : 1950 Age: 67 Gender: F MRN: [id number] Pt. Type: Out Account: [id number] Location: Ordering: LLOYD ARREDONDO Exam Date: 03/31/2018/11:04 Family Phys: DENIZ LOBO Charge Code: [id number] Physician: Edmunds Order #: [id number] DLP Dose#: CONCLUSION: 1. Mild concentric left ventricle hypertrophy with sigmoid septum. Mild left ventricle systolic dysfunction, ejection fraction 45%. Abnormal septal motion consistent with underlying left bundle branch block. 2. Normal right ventricle size and systolic function. 3. Mild mitral annular calcification with mildly thickened mitral valve leaflets and mild mitral regurgitation. 4. Mild aortic sclerosis with no significant aortic stenosis. 5. Grade 1 diastolic dysfunction. 6. RVSP estimated to be 29 mmHg. 7. As compared to the last study report of 08/18/2013, no significant changes were noted. Dictated by: LLOYD ARREDONDO on 04/01/2018 at 9:32 Approved by: LLOYD ARREDONDO on 04/01/2018 at 9:32 NM CARDIAC STRESS Observed: 03/31/2018 Status: F Source: [place] (SPECT) W/LEXISCAN 10:43 AM [place] [id number] Patient: MARINE STYLES Phone#: : 1950 Age: 67 Gender: F MRN: [id number] Pt. Type: Out Account: [id number] Location: Ordering: LLOYD ARREDONDO Exam Date: 03/31/2018/6:16 Family Phys: Charge Code: [id number] Physician: Edmunds Order #: [id number] DLP Dose#: PROCEDURE: CARDIAC STRESS SPECT WITH LEXISCAN HISTORY: 67-year-old female with hypertension, dyslipidemia and left bundle branch block baseline INDICATIONS: Syncope TECHNIQUE: Resting and post Lexiscan stress SPECT images acquired in the horizontal long, vertical long and short axis views. Protocol: Lexiscan Duration: 0.4mg over 10 seconds Peak Heart Rate: bpm, which is % of maximum predicted heart rate. Workload: not applicable REST DOSE: 9.1 mCi Sestamibi. STRESS DOSE: 27.6 mCi Sestamibi. INTERPRETATION: Resting Images: Reduced radiotracer uptake in the distal anteroseptal and apical region. Post Lexiscan stress Images: Mild improvement in the radiotracer uptake in the distal anteroseptal and apical regions as compared to the resting images. The rest of the myocardium has homogenous radiotracer uptake. Gated SPECT/wall motion: Prominent apical thinning noted. Mild septal hypokinesis likely secondary to underlying left bundle branch block. Normal left ventricle systolic function, LVEF 65%. Left ventricle end diastolic volume 118 mL. TID ratio 0.87. CONCLUSION: 1. No evidence of inducible ischemia. 2. Prominent apical thinning versus small apical infarct. 3. Mild septal hypokinesis with normal left and systolic function, LVEF 65%. Continued Report - Page 2 of 2 Patient: MARINE STYLES Phone#: : 1950 Age: 67 Gender: F MRN: [id number] Pt. Type: Out Account: [id number] Location: Ordering: [facility] Exam Date: 03/31/2018/6:16 Family Phys: Charge Code: [id number] Physician: Edmunds Order #: [id number] DLP Dose#: 4. No prior study available for comparison. Dictated by: LLOYD ARREDONDO on 03/31/2018 at 10:49 Approved by: LLOYD ARREDONDO on 03/31/2018 at 10:49 NM EXERCISE STRESS Observed: 03/31/2018 Status: F Source: [facility] TEST (W/CARDIAC STUDY 9:50 AM [place] [address] Patient: MARINE STYLES Phone#: : 1950 Age: 67 Gender: F MRN: [id number] Pt. Type: Out Account: [id number] Location: Ordering: [facility] Exam Date: 03/31/2018/6:53 Family Phys: DENIZ LOBO Charge Code: [id number] Physician: Edmunds Order #: [id number] DLP Dose#: PROCEDURE: ELECTROCARDIOGRAM STRESS TEST HISTORY: 67-year-old female with hypertension, dyslipidemia INDICATIONS: Syncope TECHNIQUE: Electrocardiogram stress test was performed using the protocol listed below. STRESS RESULTS: Protocol: Lexiscan Duration: 0.4mg over 10 seconds Resting Heart Rate: 72 bpm. Resting Blood Pressure: 158/80 mmHg Peak Heart Rate: 125 which is 80% of maximum predicted heart rate Blood pressure with Lexiscan With Lexiscan infusion blood pressure increased to196/98 Workload: 1.7 METs. Symptoms with stress: No Lexiscan induced chest pain EKG Data EKG at Baseline: Normal sinus rhythm. Left bundle branch block. Abnormal EKG. EKG with Stress: Nondiagnostic due to underlying left bundle branch block at baseline. CONCLUSION: 1. Nondiagnostic Lexiscan EKG stress test for ischemia into baseline left bundle branch block. 2. Normal physiological response to Lexiscan. 3. Nuclear images are reviewed and reported separately. Dictated by: LLOYD ARREDONDO on 03/31/2018 at 10:13 Continued Report - Page 2 of 2 Patient: MARINE STYLES Phone#: : 1950 Age: 67 Gender: F MRN: [id number] Pt. Type: Out Account: [id number] Location: Ordering: [facility] Exam Date: 03/31/2018/6:53 Family Phys: DENIZ LOBO Charge Code: [id number] Physician: Edmunds Order #: [id number] DLP Dose#: Approved by: LLOYD ARREDONDO on 03/31/2018 at 10:13 CV CAROTID STUDY Observed: 03/31/2018 Status: F Source: [facility] 9:22 AM [place] [address] Patient: MARINE STYLES Phone#: : 1950 Age: 67 Gender: F MRN: [id number] Pt. Type: Out Account: [id number] Location: Ordering: [facility] Exam Date: 03/31/2018/8:38 Family Phys: DENIZ LOBO Charge Code: [id number] Physician: Edmunds Order #: [id number] DLP Dose#: PROCEDURE: CAROTID FLOW STUDY COMPARISON: None. INDICATIONS: Syncope TECHNIQUE: Color duplex Doppler ultrasound and pulsed Doppler analysis were performed to evaluate the cervical carotid arteries and vertebral flow. All measurements for carotid artery narrowing or stenosis were obtained using the ipsilateral distal internal carotid artery as the reference value. ASSISTED SALES REPRESENTATIVE: EMMA PT HISTORY: Syncope/drop attacks RIGHT IMAGING FINDINGS: CCA: Intimal wall thickening is present. ICA: Mild heterogenous plaque without hemodynamically significant stenosis. ECA: Intimal wall thickening is present. Vertebral A: Antegrade flow Comments: Category: II. Less than 50% stenosis. ICA PSV less [id number]. Plaque and/or intimal thickening present. LEFT IMAGING FINDINGS: CCA: Mild heterogenous plaque is present. ICA: Intimal wall thickening present. ECA: Intimal wall thickening is present. Vertebral A: Antegrade flow. Comments: Category: II Less than 50% stenosis ICA PSV, less [id number]. Plaque and/or intimal thickening present. RIGHT VELOCITY RECORDINGS Prox CCA: 106.17 cm/s Prox CCA EDV: 16.24 cm/s Continued Report - Page 2 of 2 Patient: MARINE STYLES Phone#: : 1950 Age: 67 Gender: F MRN: [id number] Pt. Type: Out Account: [id number] Location: Ordering: [facility] Exam Date: 03/31/2018/8:38 Family Phys: DENIZ LOBO Charge Code: [id number] Physician: Edmunds Order #: [id number] DLP Dose#: Mid CCA: 69.95 cm/s Mid CCA EDV: 14.99 cm/s Distal CCA: 72.45 cm/s Distal CCA EDV: 16.24 cm/s ECA: 92.43 cm/s ECA EDV: 9.99 cm/s Prox ICA: 73.70 cm/s Prox ICA EDV: 22.48 cm/s Mid ICA: 76.19 cm/s Mid ICA EDV: 28.73 cm/s Distal ICA: 78.69 cm/s Distal ICA EDV: 24.98 cm/s Vertebral Artery: 59.96 cm/s Vertebral Artery EDV: 17.49 cm/s Subclavian Artery: 211.85 cm/s LEFT VELOCITY RECORDINGS Prox CCA: 104.92 cm/s Prox CCA EDV: 14.99 cm/s Mid CCA: 84.31 cm/s Mid CCA EDV: 22.48 cm/s Distal CCA: 59.96 cm/s Distal CCA EDV: 14.99 cm/s ECA: 108.67 cm/s ECA EDV: 14.99 cm/s Prox ICA: 84.31 cm/s Prox ICA EDV: 24.36 cm/s Mid ICA: 86.19 cm/s Mid ICA EDV: 29.98 cm/s Distal ICA: 75.52 cm/s Distal ICA EDV: 23.85 cm/s Vertebral Artery: 52.46 cm/s Vertebral Artery EDV: 13.12 cm/s Subclavian Artery: 177.15 cm/s CONCLUSION: 1. No hemodynamically significant stenosis. Dictated by: Michelle Hernandez MD on 03/31/2018 at 14:53 Approved by: Dasia Vasquez MD on 04/01/2018 at 8:28 DIAG MAMM W/CAD, Observed: 03/28/2018 Status: F Source: [place] 2:12 PM [facility] REPOSITORY [facility] Imaging Services [address] [place] [address] DIAG MAMM W/CAD, UNILAT MR#: [id number] Acct: [id number] Name: MARINE STYLES Rep #: [id number] : 1950 F 67 From: Cal De Los Santos MD PCP: Deniz Lobo MD Status: REG CLI Study: DIAG MAMM W/CAD, UNILAT Date of Exam: 03/28/18 Exam# [id number] Ordering Dr: Deniz Lobo MD MAMMOGRAPHY - UNILATERAL DIAGNOSTIC: RIGHT BREAST REASON FOR EXAM: Female, 67 years old. Abnormal screening mammogram. PERTINENT HISTORY: Sisters with breast cancer. TECHNIQUE: Compression views of the right breast in the mediolateral oblique and craniocaudad views are obtained. Exaggerated craniocaudad view was obtained as well. CAD: Full Field Digital Mammography with Computer Added Detection was performed. COMPARISON: Comparison is made with prior mammogram dated March 25, 2018. FINDINGS: Breast Composition: The breasts are heterogeneously dense, which may obscure small masses. Once again, calcifications are seen in the superior deep outer aspect of the right breast. A biopsy is recommended for further evaluation. No other significant abnormalities are identified. BI/DIAG MAMM W/CAD, UNILAT IMPRESSION: Microcalcifications once again seen as described. A biopsy recommended for further evaluation. ASSESSMENT CATEGORY: BIRADS Category 4: Suspicious - Biopsy Should Be Considered. A letter regarding these results will be sent to the patient by the facility within 30 days. Approximately 10% of breast cancers are not detected by mammography. A normal mammogram should not delay biopsy of a clinically suspicious abnormality. Electronically Signed: Cal De Los Santos MD at 15:19 EST Tel [phone], Service support , CC: Deniz Lobo MD Mushroom Press Operator: Signed SCREENING MAMM (CAD), Observed: 03/25/2018 Status: F Source: [place] 7:00 AM [facility] REPOSITORY [facility] Imaging Services [facility] [place] [address] SCREENING MAMM (CAD), BILAT MR#: [id number] Acct: [id number] Name: MARINE STYLES Rep #: [id number] : 1950 F 67 From: Cal De Los Santos MD PCP: Deniz Lobo MD Status: REG CLI Study: SCREENING MAMM (CAD), BILAT Date of Exam: 03/25/18 Exam# [id number] Ordering Dr: Deniz Lobo MD MAMMOGRAPHY - BILATERAL SCREENING REASON FOR EXAM: Female, 67 years old. Routine annual screening examination. PERTINENT HISTORY: Sisters with breast cancer. Bilateral excisional breast biopsies. TECHNIQUE: Digital bilateral breast collette (3D mammographic acquisition) in the CC and MLO projections. 2-D mediolateral oblique (MLO) and craniocaudad (CC) views of both breasts were obtained. CAD: Full Field Digital Mammography with Computer Added Detection was performed. COMPARISON: Comparison is made with prior examination dated April 06, 2017. FINDINGS: Breast Composition: The breasts are heterogeneously dense, which may obscure small masses. Focal area of the calcifications in the deep superior aspect of the right breast as seen on the mediolateral oblique view only. These have increased in number as compared to prior study. The patient will be recalled for additional views including a 90 degree lateral view of the right breast as well as an exaggerated craniocaudad view of the right breast with magnification views. No other significant abnormalities are identified. BI/SCREENING MAMM (CAD), BILAT IMPRESSION: Increased number of calcifications in the deep upper portion of the right breast as described. This is not well seen on the craniocaudad view. The patient will be recalled for additional views. Recall Side: Right Breast ASSESSMENT CATEGORY: BIRADS Category 0: Incomplete. Need additional imaging evaluation. A letter regarding these results will be sent to the patient by the facility within 30 days. Approximately 10% of breast cancers are not detected by mammography. A normal mammogram should not delay biopsy of a clinically suspicious abnormality. [id number] Electronically Signed: Cal De Los Santos MD at 8:08 EST Tel [phone], Service support , CC: Deniz Lobo MD Mushroom Press Operator: Signed RIBS RT UNILAT W/CHEST Observed: 02/25/2018 Status: F Source: [facility] EXPIRATION 6:09 PM [place] [address] Patient: MARINE STYLES Phone#: : 1950 Age: 67 Gender: F MRN: [id number] Pt. Type: Out Account: [id number] Location: Ordering: DENIZ LOBO Exam Date: 02/25/2018/17:56 Family Phys: Charge Code: [id number] Physician: Edmunds Order #: [id number] DLP Dose#: PROCEDURE: X-RAY RIBS RT UNILAT WITH EXPIRATION CHEST COMPARISON: None. INDICATIONS: Chest pain FINDINGS: LUNGS: Atelectasis versus scarring in the left mid to lower lung zone. VASCULATURE: Vascular crowding due to poor inspiratory effort. CARDIAC: Cardiomegaly. MEDIASTINUM: Normal. No visible mass or adenopathy. PLEURA: Normal. No effusion or pleural thickening. BONES: There are degenerative changes of the spine. Questionable nondisplaced fracture of the anterior right sixth rib. OTHER: Surgical clips are noted in the right upper quadrant. CONCLUSION: 1. Questionable nondisplaced fracture of the anterior right sixth rib. Dictated by: Michelle Hernandez MD on 02/27/2018 at 17:26 Approved by: Michelle Hernandez MD on 02/27/2018 at 17:26 CHEST 2 VIEWS Observed: 02/25/2018 Status: F Source: [place] 6:09 PM [facility] REPOSITORY [facility] [address] [place] [address] Patient: MARINE STYLES Phone#: : 1950 Age: 67 Gender: F MRN: [id number] Pt. Type: Out Account: [id number] Location: Ordering: DENIZ LOBO Exam Date: 02/25/2018/17:53 Family Phys: Charge Code: [id number] Physician: Edmunds Order #: [id number] DLP Dose#: PROCEDURE: X-RAY CHEST 2 VIEWS COMPARISON: [facility], XR, CHEST PA/LAT, 08/03/2013, 12:24. INDICATIONS: Chest pain FINDINGS: LUNGS: Nodular density projecting in the left epigastric region measuring 1.1 x 1.1 cm. Atelectasis versus scarring in the mid left lung zone. No significant pulmonary parenchymal abnormalities. VASCULATURE: Normal. Unremarkable pulmonary vasculature. CARDIAC: Normal. No cardiac silhouette abnormality or cardiomegaly. MEDIASTINUM: Normal. No visible mass or adenopathy. PLEURA: Normal. No effusion or pleural thickening. BONES: Degenerative changes of the spine. OTHER: Negative. CONCLUSION: 1. Nodular density in the region of the left lung base. Recommend dedicated CT thorax for further evaluation. 2. Atelectasis versus scarring in the mid left lung zone. Dictated by: Michelle Hernandez MD on 02/27/2018 at 17:28 Approved by: Michelle Hernandez MD on 02/27/2018 at 17:28 ORTHOPEDIC VISIT Observed: 11/26/2017 Status: F Source: [place] REPORT 10:26 AM [facility] REPOSITORY [facility] Orthopaedics AND Sports Medicine [address] [place] [address] [address] [place] [id number] OFFICE VISIT Date of Service: 11/25/17 MR#: [id number] Acct: [id number] Name: MARINE STYLES Rep #: [id number] : 1950 Provider: Katy Molina DO Age/Sex: 67/F Location: [facility] Status: Signed Intake Vital Signs11/25/17 Height 5 ft 2 in 11/25/17 Weight: 189 lb 11/25/17 Body Mass Index (BMI) 34.5 Intake Visit Reasons: RIGHT KNEE Allergies No Known Allergies Allergy (Unverified 11/25/17 08:52) Medications triamterene 75 mg-hydrochlorothiazide 50 mg tablet 1 tab PO ONCE tab 11/25/17 [History Confirmed 11/25/17] PFSH Surgical History H/O breast biopsy (Inactive) H/O colonoscopy (Inactive) H/O repair of right rotator cuff (Inactive) History of appendectomy (Inactive) History of cholecystectomy (Inactive) History of hysterectomy (Inactive) History of tonsillectomy (Inactive) h/o right elbow surgery (Inactive) Family History Mother Hypertension Father Cancer Sister Cancer Breast cancer Brother Diabetes Social History Smoking Status: Never smoker alcohol intake: current alcohol intake frequency: 0-2 drinks per day HPI RIGHT KNEE: Chief Complaint: right knee pain Details: MARINE STYLES is a 67 year old F here today for right knee pains. Patient states that she has been having pains for roughly 3 years. There was no inciting incident that she can recall. Pains are described as daily aching pains that are all over the knee and are worse at the end of the day and when she does more activity. She states that the knee does swell periodically and does have some clicking occasionally with some weakness. She denies locking or giving out. She states that Ibuprofen and Tylenol PRN do help. Ortho Exam Right Knee Knee ROM: Yes ROM-Extension -20 to 0, Yes ROM-Flexion 0-140 Examination: Yes Med jt line tenderness, No Lat jt line tenderness, No TTP inf pole patella, Yes Crepitus, Yes Pain with flexion Quad Atrophy: No Stability: NML: Anterior Drawer, NML: Posterior Drawer, NML: Valgus 30, NML: Varus 30 Apprehension with Lateral Translation: No Patella Grind: Yes Assessment AND Plan 1. Primary osteoarthritis of right knee M17.11 Plan - Katy Molina DO Personally reviewed the patient's medical history, medications, surgeries and recent exams if available. X-rays were reviewed. There is no obvious fracture, dislocation, or lucency noted. Educated the patient on the anatomy of the knee and explained that she has OA worse in the PF joint. She has wearing of the cartilage and her treatment options are strengthening and decreasing the force through the knee, today she can get a steroid injection for pain but instructed to work on the quad and core muscles. She can try an otc brace for comfort or an laborer wharf brace, oral nsaids, gel injections, PT or do nothing. Follow up in 3-4 months or sooner if pain, swelling, numbness or associated symptoms, or concerns develop. All questions answered. Patient in agreement of plan. Plan Detail Other Orders Orders: Coding Level of Care Code Off vis,new,level 3 Diagnoses Primary osteoarthritis of right knee M17.11 Osteoarthritis type: primary 11/26/17 1026 <Electronically signed by Katy Molina DO> Date Katy Molina DO 11/25/17 1235<Electronically signed by Will GRAJEDA> Cosigner Signature: Date (if applicable) Will Hull CC: KNEE 4 OR MORE Observed: 11/25/2017 Status: F Source: [place] VIEWS 8:39 AM [facility] REPOSITORY [facility] Imaging Services [address] [place] [address] Knee 4 or More Views MR#: [id number] Acct: [id number] Name: MARINE STYLES Rep #: [id number] : 1950 F 67 From: Juancho Li MD PCP: Deniz Lobo MD Status: REG CLI Study: Knee 4 or More Views Date of Exam: 11/25/17 Exam# [id number] Ordering Dr: Katy Molina DO STUDY: X-RAY - RIGHT KNEE REASON FOR EXAM: Female, 67 years old. Knee pain. No known trauma. TECHNIQUE: 5 view(s) of the knee. COMPARISON: None. FINDINGS: There is mild generalized osteopenia. Normal visualized distal femur. Normal visualized proximal tibia and fibula. Normal proximal tibiofibular articulation. There is moderate arthrosis of the medial compartment. There is mild arthrosis of the lateral compartment. There is moderate arthrosis of the patellofemoral compartment. The soft tissue structures are unremarkable. RAD/Knee 4 or More Views IMPRESSION: Generalized osteopenia with tricompartmental arthrosis as described. Electronically Signed: Juancho Li MD at 16:21 EDT , Service support , CC: Katy Molina DO; Deniz Lobo MD Mushroom Press Operator: Signed DORSAL SPINE 2 Observed: 11/02/2017 Status: F [facility] 12[facility]33 PM [place] [address] Patient: MARINE STYLES Phone#: : 1950 Age: 67 Gender: F MRN: [id number] Pt. Type: Out Account: [id number] Location: Ordering: DENIZ LOBO Exam Date: 11/02/2017/12:09 Family Phys: Charge Code: [id number] Physician: Edmunds Order #: [id number] [facility] Dose#: PROCEDURE: X-RAY DORSAL SPINE 2 VIEWS COMPARISON: None. INDICATIONS: Thoracic back pain FINDINGS: BONES: Moderate degenerative changes of the spine are present. There is no evidence of acute bone abnormality. Curvature of the spine to the left is present. DISC SPACES: Disc space narrowing is most marked at the midthoracic level. PARASPINOUS: Negative. No paraspinous abnormality is seen. OTHER: Surgical clips are present in the right upper abdomen. CONCLUSION: 1. Moderate degenerative changes are present. There is no evidence of acute bone abnormality. Dictated by: Dasia Vasquez MD on 11/02/2017 at 12:44 Approved by: Dasia Vasquez MD on 11/02/2017 at 12:44 ALLERGIES ALLERGIES DATE TYPE / CODE NAME / CODE REACTION SEVERITY SOURCE 04/11/2018 Drug adhesive REDNESS Unknown Gretchen Allergy/[id number](S tape/[id number] [facility]) (RXNORM) Hospital Repository 11/25/2017 Drug No Known Unknown Gretchen Allergy/846658047(S Allergies/F[address]) 5[address]19(RXNORM) Hospital Repository Miscellaneous No Known Moderate Artemio Pomerene Allergy/910704656(S Allergies ([facility]) Modifier) Hospital (Qualifier Repository Value) ENCOUNTERS ENCOUNTERS ADMIT/DISCHARGE ACCOUNT NUMBER ADMITTING ENCOUNTER LOCATION SOURCE CLASS 04/27/2018/04/27/20 [id number] Ambulatory ABuilding:XR [address] Repository 04/26/2018 [id number] Ambulatory [facility] Repository 04/18/2018/04/19/[id number] ding:SDCRoom Repository : MS317 04/14/2018/04/14/20 [id number] Ambulatory ABuilding:[address] Repository 03/31/2018/03/31/20 [id number] ARNULFO [address] Repository 03/28/2018 [id number] [facility] ding:OPUS Repository 03/25/2018 [id number] [facility] ding:OPBI Repository 02/25/2018/02/26/20 [id number] DENIZ LOBO [address] Repository 02/23/2018/02/24/20 [id number] DENIZ LOBO [address] Repository 11/25/2017 [id number] [facility] ding:HPRAD Repository 11/25/2017/11/26/19 [id number] Ambulatory BMSBuilding: [place] 18 BMS.SMO [facility] Repository 11/02/2017/11/03/19 [id number] [facility] Rep[facility] PAYERS PAYERS ENCOUNTER GUARANTOR PAYER SUBSCRIBER SOURCE 04/27/2018 MARINE E Primary MARINE E [facility] MORRISDOB: Insurance:AULTCARE MORRISDOB: [facility] INSCOPolicy Number: [id number] Repository SPRING [id number] SPRING [facility], Date:2018-04-15 - [place], [place] [address]Znx: [id number] [place] [address]Kaz: 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: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 Box ()Tel: [phone], [place] () () [address]WP: [phone] 04/26/2018 MARINE E Primary MARINE E [facility] MORRISDOB: Insurance:AULTCARE MORRISDOB: [facility] INSCOPolicy Number: [id number] [facility] SPRING [id number] [facility], Date:2018-04-26 - [place], [place] [address]Ygk: [id number] [address]Gpf: Name: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 Box (HP)Tel: [phone], [place] () () [address]WP: () [phone] 04/18/2018 MARINE E Primary MARINE E Gretchen [place] [address] [place] Insurance:AULTCAREPoli MORRISDOB: [facility] Number: [id number] [address]Jmv: [id number] Repository Date:4923-34-98BI [address] () [address], [place] [address]KA: 04/18/2018 Secondary NOT GIVENUNK Gretchen Insurance:SELF PAY [facility] Number: Effective Repository Date:2018-03-18 04/14/2018 MARINE E [facility] INSCOPolicy Number: [id number] [facility] [id number] [facility], Date:2018-04-04 - [place], [place] [address]Ppi: [id number] [place] [address]Ast: Name:[facility] Box ()Tel: [phone], [place] () (wp) [address]WP: [phone] 03/31/2018 [place] E [facility] Artemio Maresdee dee [facility] Insurance:AULTCARE [id number] [facility] Number: Critical access hospital, [id number] , [place] [id number] Id Date:Plan Name:A2PO [id number]: [address], [place] [address]WI: [phone] ([phone] 03/28/2018 MARINE E Primary MARINE E Gretchen[address] Insurance:AULTCAREPoli [facility] Number: [id number] [facility] [address]Nsf: [id number] Repository Date:2928-56-08AY [address] () [address], [place] [address]LM: 03/28/2018 Secondary NOT GIVENUNK Gretchen Insurance:SELF PAY [facility] Number: Effective Repository Date:2018-03-28 03/25/2018 MARINE E Primary MARINE E Gretchen [address] Insurance:AULTCAREPoli STEPHANIDOB: [facility] Number: [id number] [address]Aic: [id number] Repository Date:6903-58-54TD [address] () [address], [place] [address]JY: 03/25/2018 Secondary NOT GIVENUNK [place] Insurance:SELF PAY [facility] Number: Effective Repository Date:2018-03-04 02/25/2018 MARINE E Primary MARINE STYLESDOB: Artemio JUANB: Insurance:AULTCARE [id number] [facility] Number: Critical access hospital, [id number] [place], [place] [id number] [place] Date:Plan Name:A2 [id number]: [address] [place] [address]TM: [phone] 02/23/2018 MARINE E Primary MARINE JUANB: Artemio JUANB: Insurance:AULTCARE [id number] [facility] Number: Critical access hospital, [id number] [place], [place] [id number] [place] Date:Plan Name:A2 [id number]: [address], [place] [address]MC: [phone] 11/25/2017 MARINE E Primary MARINE Maria G Godinez [address] Insurance:AULTCAREPoljared JUANB: [facility] Number: [id number] Santa Fe [facility] Center [address]Qsi: [id number] Repository Date:6764-56-79GB [address] () [address], [place] [address]AO: 11/25/2017 Secondary NOT GIVENUNK [place] Insurance:SELF PAY [facility] Number: Effective Repository Date:2017-11-25 11/25/2017 MARINE E Primary MARINE Maria G Godinez [address] Insurance:Nesha JUANB: [facility] Number: [id number] Santa Fe Medical Center [address]Qgp: [id number] Repository Date:0492-00-00WQ [address] ) [address], [place] [address]HB: 11/25/2017 Secondary NOT GIVENUNK Gretchen Insurance:SELF PAY [facility] Number: Effective Repository Date:2017-11-25 11/02/2017 MARINE E Primary MARINE STRASBURGB: Artemio CARL: Insurance:[facility] [id number] [facility] Number: Critical access hospital, [id number] , [place] [id number] Id Date:Plan Name:A2PO [id number]: [address], [place] [address]WP: [phone]
== END 2018-04-19 10:48 | disposition home or self-care (01) ==
LOC: SDC 09:57 → AC 10:00 → MS3 16:02
PROVIDERS: Family Provider Family Medicine; PCP Family Medicine; Referring Provider Obstetrics & Gynecology; Visit Provider Obstetrics & Gynecology
PROC: (CPT 57260; principal; 2018-04-18 12:25)
DX: N81.11 Cystocele, midline (principal); N81.6 Rectocele; N81.5 Vaginal enterocele; Z79.899 Other long term (current) drug therapy; Z85.828 Personal history of other malignant neoplasm of skin; I10 Essential (primary) hypertension; E78.00 Pure hypercholesterolemia, unspecified
CPT/HCPCS: 00942; 57260; 36415; 80053; 82565; 84132; 85027; 85610; 85730; 86850; 86900; 88302; 88304; J7120; J2405

== ENCOUNTER → 2018-08-19 08:43 | Outpatient (CLI) | payer OTHER, SELFPAY ==
[2018-04-18 17:56] VITALS: BMI 32.2
--- NOTE | 2018-08-19 08:45 | RAD_ITS ---
HISTORY: Injury. COMPARISON: None FINDINGS: XR Knee Complete 4 Views or More: Left. SOFT TISSUES: No acute findings. No radiopaque foreign body. BONES/JOINTS: No acute fracture or subluxation. No apparent joint effusion. Normal alignment. Mild degenerative changes are noted. No destructive changes observed. RAD/Knee 4 or More Views IMPRESSION: Mild degenerative changes. No acute fracture or dislocation. at 0503 Reported and signed by: Walt Key MD Electronically Signed: Walt Key, at 5:02 EDT Tel , Service support ,
[2018-10-04 15:33] LABS: Pathologist Comment May follow
[2018-10-04 16:47] LABS: Synovial Fld Mononuclear WBC % 85.9 %; Synovial Fld Polynuclear WBC # 0.087 10^3/ul; Synovial Fld Polynuclear WBC % 14.1 %
[2018-10-04 20:39] LABS: RBC /Synovial Fluid 16 /mm3 (0)
[2018-10-04 20:47] LABS: AUTO B FLUID DILUENT BKGD CT WBC <0.1 RBC <0.01 (W<.1,R<.01); CRYSTALS, BODY FLUID See PATH REV; Color / Synovial Fluid Yellow (Pale Yellow); Source / Synovial Fluid LEFT KNEE; Source- Body Fluid SYNOVIAL
[2018-10-04 20:48] LABS: Appearance /Synovial Fluid Sl hazy (CLEAR); Body Fluid QC Type(s) BF1Q,BF2Q; Lymph 8 %; Monocyte /Synovial Fluid 79 %; Neutrophil 13 % (0-25)
[2018-10-06 09:02] LABS: Pathologist Review Reviewed
[2018-10-06 16:15] LABS: GLUCOSE, SYNOVIAL FLUID 112 mg/dL (.); PROTEIN, SYNOVIAL FLUID 4.4 g/dL (.)
== END ==
PROVIDERS: Orthopaedic Surgery; Family Provider Family Medicine; PCP Family Medicine; Referring Provider Physician Assistant; Visit Provider Physician Assistant
DX: R52 Pain, unspecified (principal); T14.90XA Injury, unspecified, initial encounter; X58.XXXA Exposure to other specified factors, initial encounter; Y93.9 Activity, unspecified; Y92.9 Unspecified place or not applicable; Y99.9 Unspecified external cause status
CPT/HCPCS: 73564; 82945; 84157; 87070; 87075; 87205; 89050; 89051; 89060

== ENCOUNTER → 2018-11-10 07:05 | Outpatient (CLI) | payer OTHER, SELFPAY ==
[2018-10-21 08:19] VITALS: BMI 32.2
--- NOTE | 2018-11-10 07:08 | MRI_ITS ---
STUDY: MRI LEFT KNEE REASON FOR EXAM: Medial left knee pain since 08/15/2018. TECHNIQUE: Standardized fat and water weighted pulse sequences were obtained in all 3 orthogonal planes. COMPARISON: Radiographs 08/19/2018. FINDINGS: There is a small incomplete radial tear at the root of the posterior horn of the medial meniscus (proton-density coronal image 12; T2 sagittal image 11). There is mild arthrosis of the medial femorotibial compartment with mild partial-thickness chondral loss of the medial femoral condyle (T2 sagittal image 9). There is a small subchondral insufficiency fracture of the medial femoral condyle (T2 coronal image 9) with bone edema. There is mild subchondral bone edema of the medial tibial plateau. There is subchondral cystic change of the posterior nonweightbearing medial femoral condyle. There is mild periligamentous inflammation of the medial collateral ligament (T2 coronal image 16). Normal distal semimembranosus, gracilis and semitendinosus tendons. Normal lateral meniscus. Normal hyaline cartilage of the lateral femorotibial compartment. Normal lateral femoral condyle and tibial plateau. Normal proximal tibiofibular articulation. Normal lateral collateral (fibular) ligament. Normal popliteus tendon. Normal biceps femoris tendon. There is mild intrasubstance mucoid degeneration of the anterior cruciate ligament (T2 coronal image 14). Normal posterior cruciate ligament (PCL). Normal congruent patellofemoral articulation. There is arthrosis of the patellofemoral compartment with chondral loss (T2 sagittal image 19) and mild subchondral cystic change. Normal medial and lateral patellar retinaculum. Normal visualized quadriceps tendon. Normal patellar tendon. Normal Hoffa's fat pad. There is a very small joint effusion. There is a small thin medial patellar plica. The soft tissues are unremarkable. There is mild cystic change of the proximal tibia at the insertion site of the anterior cruciate ligament. MRI/Lower Ext Joint Only (Routine) IMPRESSION: Small radial tear at the root of the posterior horn of the medial meniscus. Small subchondral insufficiency fracture of the medial femoral condyle. Patellofemoral arthrosis and mild arthrosis of the medial femorotibial compartment. Mild periligamentous inflammation of the medial collateral ligament. Very small joint effusion. Electronically Signed: Selvin Callahan MD at 9:05 EDT Tel , Service support ,
== END ==
PROVIDERS: Family Provider Family Medicine; PCP Family Medicine; Referring Provider Orthopaedic Surgery; Visit Provider Orthopaedic Surgery
DX: M25.562 Pain in left knee (principal)
CPT/HCPCS: 73721

== ENCOUNTER 2018-12-28 07:51 | Day surgery (SDC) | payer OTHER, SELFPAY ==
[2018-11-15 10:11] VITALS: BMI 32.2
[2018-12-15 08:07] VITALS: BMI 32.2
--- NOTE | 2018-12-15 14:35 | HP_ITS ---
I have re-examined the patient. There are no clinical changes since date of exam. Intake Vital Signs 12/15/18 Body Mass Index (BMI) 32.2 Intake Visit Reasons: left knee Is patient in pain?: Yes Allergies adhesive tape Adverse Reaction (Verified 04/11/18 14:32) redness Medications triamterene 75 mg-hydrochlorothiazide 50 mg tablet 1 tab PO DAILY tab 11/25/17 [History Confirmed 12/15/18] Atorvastatin Calcium [Lipitor] 20 mg PO QHS 04/11/18 [History Confirmed 12/15/18] Multivitamin [Multiple Vitamins] 1 ea PO DAILY 04/11/18 [History Confirmed 12/15/18] Potassium Chloride [K-Dur] 20 meq PO BID 04/15/18 [History Confirmed 12/15/18] Docusate Sodium [Colace] 100 mg PO BID PRN PRN #60 cap 04/18/18 [Rx Confirmed 12/15/18] meloxicam 15 mg tablet 15 mg PO DAILY #30 tab 08/19/18 [Rx Confirmed 12/15/18] PFSH Medical History (Updated 04/18/18 @ 16:00 by Abebe Cruz MD) History of hysterectomy (Inactive) Surgical History (Updated 04/18/18 @ 16:00 by Abebe Cruz MD) H/O breast biopsy (Inactive) H/O colonoscopy (Inactive) H/O repair of right rotator cuff (Inactive) History of appendectomy (Inactive) History of cholecystectomy (Inactive) History of tonsillectomy (Inactive) h/o right elbow surgery (Inactive) Family History (Updated 11/25/17 @ 13:49 by Hans Lehman) Mother Hypertension Father Cancer Sister Cancer Breast cancer Brother Diabetes Social History (Updated 12/16/18 @ 15:13 by NICCI Sorto) Smoking Status: Never smoker alcohol intake: current alcohol intake frequency: 0-2 drinks per day HPI left knee: Surgical H&P: Yes Details: Parts of this documentation were recorded by a scribe, this documentation accurately reflects the service provided and the decisions made by , NICCI Sorto 12/15/18 0805. TORI STYLES is a 68 year old F here today for f/u on her recent inspector barrel brace and to sign consent for surgery scheduled 12/28. She has been wearing the brace for a week and notices some increased stability and a little less pain. She is ambulating with a normal gait and is working but her pain increases after. Denies numbness, tingling or other associated symptoms. ROS Const Reports as per HPI Eyes Reports as per HPI ENT Reports as per HPI Card Reports as per HPI Resp Reports as per HPI GI Reports as per HPI Musc Reports as per HPI, Reports joint pain Skin/Breast Reports as per HPI Neuro Yes as per HPI Psych Reports as per HPI Endo Reports as per HPI Octavio/Lymph Reports as per HPI Aller/Immun Reports as per HPI Ortho Exam Left Knee Contralateral Normal: Yes Homans Sign: No Knee ROM: Yes ROM-Extension -20 to 0, Yes ROM-Flexion 0-140 Examination: Yes med jt line tenderness, Yes Pain with flexion KNEE: Patient has no acute abnormalities on inspection. She is some minor widening/swelling of the knee. There is no acute appearance and no ecchymosis/bruising, erythema, or other skin changes. Patient does have some evident tenderness on palpation of the tibial plateau as well as the femoral condyles. Assessment & Plan Problems 1. 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 Left knee pain, unspecified chronicity M25.562 Plan Patient presents for surgical consent to proceed with left knee arthroscopy and possible micro-internal fixation. Patient has already spoke with the surgeon about surgery at the same time we did discuss the surgery in detail today and answered any questions that she had. We did also discussed a postop treatment/management. Patient was given surgical scrub to be used the night before in the morning of her procedure. We did discuss preanesthesia testing he will be contacting her via telephone. She will not know the time of her surgery until the day before. She can always contact our office in the meantime if she has any other questions or concerns. At this time all questions were answered to her satisfaction and consent was signed in office today. 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
[2018-12-28] VITALS (8 sets, daily range): BP systolic 117–151; BP diastolic 62–77; PULSE 64–76; RESP 16–18; TEMP 36.5–37.3; O2SAT 92–100; BMI 31.7
--- NOTE | 2018-12-28 | RAD_ITS ---
STUDY: X-RAY - LEFT KNEE REASON FOR EXAM: Internal fixation. TECHNIQUE: A single intraoperative view of the knee. COMPARISON: Radiographs 08/19/2018. FINDINGS: There is a surgical instrument overlying the right medial femoral condyle. Electronically Signed: Selvin Callahan MD at 14:33 EDT Tel , Service support , RAD/Knee 1 or 2 Views
[2018-12-28] MEDS: Epinephrine (1 mg/ml) 1 MG/ML VIAL (09:52)
[2018-12-28] MEDS: Cefazolin 2 GM in 0.9% Normal Saline 100 ML IV (10:55)
[2018-12-28] MEDS: Mupirocin Ointment 22gm Tube 1 APPLIC (12:25)
--- NOTE | 2018-12-28 12:39 | PCM.DC.ORTHO ---
Discharge Diet: No Restrictions - remove dressings in 4 days and apply bandaids to incision sites, follow up in 2 weeks, non weight bearing left leg, call with concerns, may get inciison wet after 4 days Discharge Activity: May Not Drive May shower in (days): 1 Ice area for (Minutes): 20 - Every hour while awake. Weight Bearing Status: Weight bearing as tolerated Keep extremity elevated above heart level: Operative Extremity Call your doctor if your incision/area has: Continuous Slow Oozing, Sudden Increased Bleeding, Increased Pain/ Swelling, Increased Redness, Foul Smelling Discharge Call your doctor if you observe: Fever of 101 or Higher, Coldness, Increased Pain, Numbness or Tingling, Change in Color, Calf discomfort Allergies/Adverse Reactions: Allergies adhesive tape Adverse Reaction (Verified 12/22/18 08:07) redness Medications to take at Discharge triamterene 75 mg-hydrochlorothiazide 50 mg tablet 1 tab PO DAILY tab 11/25/17 Atorvastatin Calcium [Lipitor] 20 mg PO QHS 04/11/18 Multivitamin [Multiple Vitamins] 1 ea PO DAILY 04/11/18 Potassium Chloride [K-Dur] 20 meq PO BID 04/15/18 Docusate Sodium [Colace] 100 mg PO BID PRN PRN #60 cap 04/18/18 Ondansetron [Zofran] 8 mg PO Q8H PRN PRN #20 tab 12/28/18 Oxycodone HCl/Acetaminophen [Percocet 5/325] 1 - 2 tablet PO Q6H PRN PRN 5 Days #28 tablet 12/28/18 The following prescriptions were given: Oxycodone HCl/Acetaminophen [Percocet 5/325] 1 - 2 tablet PO Q6H PRN PRN 5 Days #28 tablet PRN Reason: Pain Transmission Status: Sent to [facility] Ondansetron [Zofran] 8 mg PO Q8H PRN PRN #20 tab PRN Reason: Nausea Transmission Status: Pending to [facility] Primary Care Physician: Alex Clement MD [Primary Care Provider] - Test Results: Test results from this visit will be discussed in further detail at your follow-up appointment, if applicable. Please Follow Up With: Katy Molina, - [phone]
--- NOTE | 2018-12-28 12:40 | OP.PCM_ITS ---
Report of Operation Date of Procedure: 12/28/18 Pre-Operative Diagnosis: left knee osteoarthritis, medial meniscus tear, s ynovitis, subchondral insufficiency fracture of medial tibial plateau, medial femoral condyle, central/lateral tibial plateau Post-Operative Diagnosis: same Surgery/Procedure Performed:: salk, pmm, plm, inf pole patella osteophyte debridement, extensive synovectomy, microinternal fixation medial and centrolateral tibial plateau and medial femoral condyle, nutrition helper: Will Hull Type of Anesthesia:: General/Regional Anesthesiologist: Prem Cruz Estimated Blood Loss (mL): none Fluids Replaced: 1000ml lr Description of Procedure: Preop note Patient is a 68-year-old female with continued left knee pain recalcitrant to conservative treatment. MRI confirms subchondral insufficiency fractures medial femoral condyle as well as the medial tibial plateau. Again patient failed conservative treatment and elected to proceed with left knee arthroscopy repair as indicated. Risks include but not discussed the patient risks including but not limited to blood loss, blood clot, infection, neurovascular, failure procedure, loss of life and loss of limb. Patient is aware would like proceed with left knee arthroscopy repair as indicated micro internal fixation of her medial femoral condyle near the medial tibial plateau. Operative note Patient seen and examined preop holding area. Left knee was marked. Patient brought to the operating placed supine on the operating table. Sign, anest hesia, antibiotics were cupola operator. The left knee was prepped and draped in usual sterile fashion with a tourniquet around her upper thigh all bony problems well- padded SCDs placed on her contralateral limb. We began our diagnostic right diagnostic arthroscopy of the left leg was elevated exsanguinated and triggers rates her pressure 250 torr. We created a anterolateral portal with an 11 blade. Begin visualizing the patellofemoral joint which was grade 3 changes throughout she had extensive synovitis and it was difficult to ascertain the them to try to enter the anteromedial joint line. We created an anterior medial portal under direct visualization. We used a shaver to resect the thickened synovitis is anteromedial and anterolateral as well as in the suprapatellar pouch. We then moved to the medial joint line. After creating anterior medial portal we then probed the posterior horn insertion which was unstable at its insertion site. We resected the posterior horn unstable pieces with a combination of a shaver and a basket. We then reinserted the probe to ensure that we have instead had stable remnant of meniscus remaining which we did have. We then continue with our extensive synovitis. We then moved to the lateral joint line she had some fraying of the mid body which had extended into the intrasubstance was debrided back gently with a shaver to stable rim we then kristin nserted the probe in the lateral meniscus which is was stable. The grade 2 changes and thinning of the cartilage on the lateral tibial plateau lateral femoral condyle was intact and stable probing. ACL PCL were present within the notch. We then inserted a shaver there is a large osteophyte in the inferior pole of the patella which was gently debrided back to stable rim as well. We then moved to a micro-internal fixation. Based on preoperative review of the patient's right knee MRI location of the bone marrow lesion consistent with insufficiency stress fracture in the medial tibial plateau and medial femoral condyle were identified. Preoperative surgical planning allow for determination of the optimal method for assessing the lesion. Intraoperatively, image fluoroscopy combined with bone target instruments from [employer] were used to guide surgical instruments into the proximity of the subchondral medial tibial plateau fracture. [employer] acupoint injection cannula was drilled into the subchondral bone. Standard repair methodology was used to treat the subchondral bone defect in the medial tibial plateau and femoral condyle. Image fluoroscopy was utilized to confirm accurate insertion of the acupoint injection cannula into the subchondral fracture. After insertion, fracture stabilization was performed by injecting approximately 2 cc of [employer] knee [employer] bone substitute material into the medial tibial plateau and 1.5cc in medial femoral condyle Image fluoroscopy was used to monitor the injection process and ensure injection of the bone substitute into the subchondral bone so that the bio material flowed into the fracture site to stabilize the fracture and facilitate fracture repair. The incision was irrigated with copious nonsterile saline. We then reinserted the probe into the need to ensure that there is no extravasation of the material into the knee joint which there was not. The wounds were closed with interrupted 4-0 nylon stitches. Sterile dressings were applied tourniquet was inflated for total working time of 25 minutes. Patient tolerated procedure well there were no comp occasions patient was transferred to the recovery room in stable condition. Postop note Nonweightbearing left leg Pharmacy has prescriptions Discussed with We will discuss and give pictures to family in 2 weeks Call with increased pain numbness tingling further issues arise This note was generated with Dymantation software. It may contain incorrect words, spelling, and punctuation that were not noted in checking the note before signing.
== END 2018-12-28 15:10 | disposition home or self-care (01) ==
LOC: SDC 07:53 → AC 07:55
PROVIDERS: Family Provider Family Medicine; PCP Family Medicine; Referring Provider Orthopaedic Surgery; Visit Provider Orthopaedic Surgery
PROC: (CPT 29870; principal; 2018-12-28 09:20)
DX: M84.462 Pathological fracture, left tibia (principal); S83.242A Other tear of medial meniscus, current injury, left knee, initial encounter; M17.12 Unilateral primary osteoarthritis, left knee; M65.862 Other synovitis and tenosynovitis, left lower leg; X58.XXXA Exposure to other specified factors, initial encounter; Y93.9 Activity, unspecified; Y92.9 Unspecified place or not applicable; Y99.9 Unspecified external cause status; I10 Essential (primary) hypertension; E78.00 Pure hypercholesterolemia, unspecified; Z79.899 Other long term (current) drug therapy; Z78.0 Asymptomatic menopausal state; Z85.828 Personal history of other malignant neoplasm of skin; Z90.710 Acquired absence of both cervix and uterus
CPT/HCPCS: 01400; 29856; 29880; 64447; 73560; 76000; C1713; J7120; J2405

== ENCOUNTER → 2019-04-04 08:20 | Outpatient (CLI) | payer OTHER, SELFPAY ==
[2019-04-04 08:10] VITALS: BMI 31.7
--- NOTE | 2019-04-04 08:21 | RAD_ITS ---
STUDY: X-RAY - RIGHT KNEE REASON FOR EXAM: Chronic pain. TECHNIQUE: 4 view(s) of the knee. COMPARISON: Radiographs 11/25/2017. FINDINGS: Normal visualized distal femur. Normal visualized proximal tibia and fibula. Normal proximal tibiofibular articulation. There is [id number] joint space narrowing of the medial femorotibial compartment. Normal lateral femorotibial compartment. There is moderate joint space narrowing of the patellofemoral articulation with subchondral cystic change and small marginal osteophytes. The soft tissue structures are unremarkable. RAD/Knee 4 or More Views IMPRESSION: Arthrosis of the medial femorotibial and patellofemoral compartments. Electronically Signed: Selvin Callahan MD at 11:06 EST Tel , Service support ,
== END ==
PROVIDERS: Family Provider Family Medicine; PCP Family Medicine; Referring Provider Orthopaedic Surgery; Visit Provider Orthopaedic Surgery
DX: M25.561 Pain in right knee (principal)
CPT/HCPCS: 73564

== ENCOUNTER → 2019-07-27 13:37 | Outpatient (CLI) | payer OTHER, SELFPAY ==
[2019-07-27 12:37] VITALS: BMI 31.8
--- NOTE | 2019-07-27 13:39 | RAD_ITS ---
STUDY: X-RAY - RIGHT KNEE REASON FOR EXAM: Right knee pain with worsening, no recent injury. TECHNIQUE: 4 view(s) of the knee. COMPARISON: Radiographs 04/04/2019. FINDINGS: Normal visualized distal femur. Normal visualized proximal tibia and fibula. Normal proximal tibiofibular articulation. There is moderate joint space narrowing of the medial femorotibial compartment, mildly increased since the prior study. Normal lateral femorotibial compartment. There are small marginal osteophytes and moderate to severe joint space narrowing of the patellofemoral articulation, mildly increased since prior study. The soft tissue structures are unremarkable. RAD/Knee 4 or More Views IMPRESSION: Arthrosis of the medial femorotibial and patellofemoral compartments. Electronically Signed: Selvin Callahan MD at 14:07 EDT Tel , Service support ,
== END ==
PROVIDERS: PCP Family Medicine; Referring Provider Orthopaedic Surgery; Visit Provider Orthopaedic Surgery
DX: M17.11 Unilateral primary osteoarthritis, right knee (principal)
CPT/HCPCS: 73564

== ENCOUNTER → 2019-08-16 08:40 | Outpatient (CLI) | payer OTHER, SELFPAY ==
[2019-08-09 08:07] VITALS: BMI 31.8
--- NOTE | 2019-08-16 08:41 | CT_ITS ---
STUDY: CT SCAN LOWER EXTREMITY RIGHT REASON FOR EXAM: Female, 69 years old. CARMEN PLANNING, RT KNEE RADIATION DOSAGE (If Supplied By Facility): CTDIvol = ( 30.70 ) mGy, DLP = ( 1823.54 ) mGycm. Individualized dose optimization techniques were used for this CT.? TECHNIQUE: Multiple axial tomographic images of the right hip, right knee and right ankle joints were obtained. Coronal and sagittal reconstruction was obtained as well. COMPARISON: None. FINDINGS: The right hip joint is unremarkable. Marked degree of osteoarthritis involving the patellofemoral joint. Mild degree of joint space narrowing involving the medial and lateral compartments of the knee joint with chondrocalcinosis of the medial meniscus. Subchondral cysts are seen in the region of the lateral tibial plateau and medial aspect of the lateral femoral condyle. The ankle joint is unremarkable. CT/Extremity Lower without Contra IMPRESSION: Marked degree of the joint space narrowing involving the patellofemoral joint. Mild degree of joint space narrowing involving the medial and lateral compartments of knee joint with chondrocalcinosis of the right medial meniscus. Subchondral cysts are seen in the medial aspect of the lateral femoral condyle as well as the lateral tibial plateau Electronically Signed: Cal De Los Santos, at 12:24 EDT , Service support ,
== END ==
PROVIDERS: PCP Family Medicine; Referring Provider Orthopaedic Surgery; Visit Provider Orthopaedic Surgery
DX: Z01.818 Encounter for other preprocedural examination (principal)
CPT/HCPCS: 73700

== ENCOUNTER 2019-10-24 08:17 | Day surgery (SDC) | payer OTHER, SELFPAY ==
[2019-08-09 08:07] VITALS: BMI 31.8
[2019-10-11 09:18] VITALS: BMI 31.8
--- NOTE | 2019-10-11 09:49 | EKG12_ITS ---
Test Reason : PREOP Blood Pressure : / mmHG Vent. Rate : 091 BPM Atrial Rate : 091 BPM P-R Int : 170 ms QRS Dur : 168 ms QT Int : 424 ms P-R-T Axes : 046 -32 125 degrees QTc Int : 521 ms Normal sinus rhythm Left axis deviation Left bundle branch block Abnormal ECG Confirmed by LUIS A CAMPOS ([id number]), offline editor JUAN MCKEON ([id number]) on 10/12/2019 2:16:32 PM Referred By: Raul Meneses Confirmed By:LUIS A CAMPOS
[2019-10-11 10:06] LABS: Absolute Lymphocyte Count 1.55 X10^3/uL (0.83-4.51); Absolute Neutrophil Count 5.9 X10^3/uL (2.0-7.7); Basophil# 0.04 X10^3/uL; Basophil% 0.5 % (0-1); Eosinophil# 0.06 X10^3/uL; Eosinophils% 0.7 % (0-5); Hematocrit 41.1 % (37-47); Hemoglobin 13.7 g/dL (12.0-15.0); Lymphocyte # 1.55 X10^3/ul (4.0); Lymphocyte % 18.9 % (19-41); Mean Corp Hgb Conc 33.3 g/dL (32-36); Mean Corpuscular Hgb 30.9 pg (27.0-32.0); Mean Corpuscular Volume 92.8 fL (81-99); Mean Platelet Vol. 9.1 fl (6.2-12.0); Monocyte# 0.61 X10^3/uL; Monocyte% 7.4 % (0-10); NRBC Flagged by Analyzer 0 % (0-5); Neutrophil # 5.93 X10^3/uL (2.7-7.7); Neutrophil % 72.1 % (47-70); Platelet Count 345 K/mm3 (150-450); RBC Distribution Width CV 12.4 % (11.6-14.6); RBC Distribution Width SD 42.2 fl (35.1-43.9); Red Blood Count 4.43 M/mm3 (4.2-5.4); White Blood Count 8.2 K/mm3 (4.4-11.0)
[2019-10-11 10:18] LABS: Partial Thromboplast Time 29.4 Seconds (24.1-36.2); Prothrombin Time (Protime)PT. 12.7 SECONDS (11.7-14.9)
[2019-10-11 10:39] LABS: Anion Gap 6 (5-15); BUN 19 mg/dL (7-18); Calcium,Total 10.6 mg/dL (8.5-10.1); Chloride 101 mmol/L (98-107); Creatinine, Serum 1.19 mg/dL (0.55-1.02); EST Glomerular Filtration Rate 48 mL/min (>60); Est Glom Filt Rate - Afr Amer 58 mL/min (>60); Glucose 120 mg/dL (74-106); Potassium 3.3 mmol/L (3.5-5.1); Sodium Level 138 mmol/L (136-145)
[2019-10-24] VITALS (8 sets, daily range): BP systolic 114–134; BP diastolic 50–69; PULSE 66–83; RESP 15–20; TEMP 36.1–37.3; O2SAT 96–100; BMI 32.9
[2019-10-24 08:52] LABS: Magnesium 2.3 mg/dL (1.6-2.6)
[2019-10-24 09:06] LABS: Bedside Glucose 72 mg/dL (70-110)
[2019-10-24] MEDS: Acetaminophen 500 MG Tablet 1000 MG PO ×2 (09:13→16:53)
[2019-10-24] MEDS: Scopolamine 1mg/72hr Patch 1 PATCH TRANSDERM. (09:13)
[2019-10-24] MEDS: Gabapentin 600 MG Tablet PO (09:14)
[2019-10-24] MEDS: Celecoxib 200 MG Capsule 400 MG PO (09:15)
[2019-10-24] MEDS: Lactated Ringers 1,000 ML 100 ML IV (09:15)
[2019-10-24 09:17] LABS: Potassium 3.6 mmol/L (3.5-5.1)
--- NOTE | 2019-10-24 10:42 | PCM.HP.BLA ---
History and Physical Date of Admission: 10/24/19 Intake Vital Signs 10/11/19 BMI 31.8 Intake Visit Reasons: right knee Is patient in pain?: Yes Allergies adhesive tape Adverse Reaction (Verified 10/10/19 11:25) redness PFSH Surgical History (Updated 04/18/18 @ 16:[address] Abebe Cruz MD) H/O breast biopsy (Inactive) H/O colonoscopy (Inactive) H/O repair of right rotator cuff (Inactive) History of appendectomy (Inactive) History of cholecystectomy (Inactive) History of hysterectomy (Inactive) History of tonsillectomy (Inactive) h/o right elbow surgery (Inactive) Social History (Updated 10/11/19 @ 10:13 by NICCI Sorto) Smoking Status: Never smoker alcohol intake: current alcohol intake frequency: 0-2 drinks per day HPI right knee: Details: Parts of this documentation were recorded by a scribe, this documentation accurately reflects the service provided and the decisions made by Will lane PA 10/11/19 0915. TORI STYLES is a 69 year old F here today for right knee pain, she is ambulating without assistance. She has a TKA scheduled in a few weeks and is here for an Iovera treatment. Denies numbness, tingling or other associated symptoms. She has very little swelling noted today. Ortho Exam Right Knee Skin/Wound: No erythema, No ecchymosis, Yes swelling Homans Sign: No Knee ROM: No ROM-Extension -20 to 0, No ROM-Flexion 0-140 Examination: Yes Med jt line tenderness, Yes Lat jt line tenderness Office Procedures Iovera Details:: Preoperative diagnosis : right knee pain Postoperative diagnosis: Same Procedure: Cryotherapy with Iovera device to anterior femoral cutaneous nerve and 2 branches of the infrapatellar saphenous nerve III nerves in total Description of procedure: Patient was brought back to the procedure room the operative extremity was identified by both patient and physician. The PIP flexion crease was measured to the midpoint of the patella and this distance was divided in 3 resulting in 10 cm location proximal to the midpoint of the patella. This line was extended medial and lateral to the extent of the edges of the patella. This was our treatment line for the anterior femoral cutaneous nerve. A second treatment line was made 5 cm medial to the inferior pole of the patella and 5 cm distally. The leg was prepped with alcohol and Betadine. Lidocaine with epi was used along the treatment lines. Using the Iovera device treatment lines were treated with 1 minute cycles. Reproduction of paresthesias was monitored in the area of nerve distribution. Once all 3 nerves were treated across the 2 treatment lines patient was cleaned and a light dressing with 4 x 4 and Pb wrap was applied. Patient tolerated the procedure without complication. Assessment & Plan Problems 1. Primary osteoarthritis of right knee M17.11 Plan Patient presents to the office today for Iovera treatment on the right knee prior to her right knee total arthroplasty. Patient has discussed this procedure previously at the same time we did go over the procedure including the steps and the goals. After discussion and her questions were answered consent was signed in office today. The leg initially was cleansed with alcohol soaked gauze pads. Skin pen was then used to flory patella landmarks finding the mid point of the patella. Measurement then taken from the mid pole of the patella to the inguinal crease. Measurement was then taken one third the distance from the mid pole of the patella. The medial and lateral margins of the patella were then extended up to this same flory and a horizontal treatment line was made. Flory was then cleansed again with alcohol and local anesthetic was placed around the treatment line. Area was then cleansed with a Betadine scrub and wiped with alcohol dispersing the anesthetic. Treatment was then performed on this line. Patient tolerated this with no discomfort after local anesthetic. Measurement was then taken from the inferior pole of the patella 5 cm medially and then 5 cm distally from that point in a vertical treatment line was made. Area was again cleansed with alcohol first before local anesthetic was placed. Betadine scrub was then used to clean the area and alcohol pad was used to wipe the Betadine area off. Treatment was then performed the vertical line. Patient tolerated this without any discomfort after local anesthetic. Patient to monitor for any erythema, warmth, tenderness, or signs of infection. She can ice the area for the next few days. Notify with any other concerns or complaints in the meantime. This note was generated with [employer] software. It may contain incorrect words, spelling, and punctuation that were not noted in checking the note before signing. Orders Orders: Iovera Today M25.569 Coding Level of Care Code Attention Shoe Sprayer Diagnoses Primary osteoarthritis of right knee M17.11 ??Osteoarthritis type: primary Comment CPT code for Iovera treatment of right knee [In addition to standard risk risk of COVID-19 exposure and potential consequences including respiratory failure ventilation and patient wishes to assume this risk secondary to ongoing progressive worsening symptoms that are limiting activities of daily living.] I have re-examined the patient. There are no clinical changes since date of exam Procedure Criteria Procedure Type: Elective Procedure Essential: Yes Criteria Statement: On 08/01/2019 the [facility] ([facility]) Public Order signed by [facility] Director Jasmine Collier M.D., regarding the Management of Non-Essential Surgeries and Procedures for the purpose of preserving Personal Protective Equipment (PPE) and critical hospital capacity and resources within [place] went into effect as of 08/02/2019 at 5:00PM. According to the [facility] Public Order: This action will remain in full force and effect until the State of Emergency declared by the Governor no longer exists or the Director of the [facility] rescinds or modifies this Order. This [facility] order stated all non-essential or elective surgeries and procedures that utilize PPE should be delayed unless there is undue risk to the current or future health of a patient. After reviewing the aforementioned [facility] Public Order and the patient's clinical case, I have determined that the scheduled procedure meets the criteria to go forward. Risk to Patient if Procedure Delayed: Presence of severe symptoms causing an inability to perform ADL's COVID Risk Discussion: The surgeon/proceduralist and patient have discussed in detail the risk of exposure to and/or potential harm posed by the COVID-19 virus with having a surgery/procedure at this time versus the risk of delaying the surgery/procedure. It is not possible to know either the risk of delaying the surgery or procedure or chance of getting an infection with perfect accuracy, but a joint decision was made between the patient and the surgeon/proceduralist to proceed at this time with the scheduled surgery/procedure as indicated on the consent form.
[2019-10-24] MEDS: Cefazolin 2 GM in 0.9% Normal Saline 100 ML IV (11:36)
[2019-10-24] MEDS: dexAMETHasone 10 MG/ML Vial 8 MG IV (12:00)
[2019-10-24] MEDS: Lactated Ringers 1,000 ML 125 ML IV (13:16)
[2019-10-24] MEDS: 0.9% Normal Saline (Pres. free 10 ML Vial (13:25)
[2019-10-24] MEDS: Epinephrine (1 mg/ml) 1 MG/ML VIAL (13:25)
[2019-10-24] MEDS: Bupivacaine 0.5% PF 10 ML VIAL (13:25)
[2019-10-24] MEDS: Betamethasone/Betamethasone 30 MG/5 ML Vial (13:25)
--- NOTE | 2019-10-24 13:57 | DCINST_ITS ---
Discharge Diet: No Restrictions Discharge Activity: Use Walker Weight Bearing Status: Weight bearing as tolerated Keep extremity elevated above heart level: Operative Extremity Call your doctor if you observe: Shortness of breath, Chest pain Additional Instructions: Ice and elevate one week while not ambulating. Ambulation is encouraged. Weightbearing as tolerated. Use assistive devise for stability. Encourage FULL knee extension and flexion 1 time EVERY time you get up and down and MULTIPLE times per day. No showering 72 hours after surgery. Begin showering postop day #3. Remove the dressing prior to shower and gently wash with warm water and antibacterial soap then pat dry and place abdominal pad (or plain gauze) and SAMANTHA hose over top. This is to be done daily. Do not submerge for 3 weeks. If not showering daily after the initial 72 hours then you must clean incision and change dressing daily. Do not allow animals near the incision area. Keep clean. Follow anticoagulation recommendations as prescribed. Do not take any NSAIDs while on blood thinner. Start physical therapy. If you are not currently scheduled for physical therapy or you are unsure of appointment time please call office [facility] to arrange. Call Dr. Meneses with any concerns. Allergies/Adverse Reactions: Allergies adhesive tape Adverse Reaction (Verified 10/24/19 08:56) redness Medications to take at Discharge triamterene 75 mg-hydrochlorothiazide 50 mg tablet 1 tab PO DAILY tab 11/25/17 Atorvastatin Calcium [Lipitor] 20 mg PO QHS 04/11/18 Multivitamin [Multiple Vitamins] 1 ea PO DAILY 04/11/18 Potassium Chloride [K-Dur] 20 meq PO DAILY 04/15/18 Acetaminophen [Tylenol Extra Strength] 1,000 mg PO Q6H PRN #100 tab 10/24/19 Apixaban [Eliquis] 2.5 mg PO BID #30 tab 10/24/19 Cephalexin [Keflex] 1,000 mg PO Q8 #4 cap 10/24/19 Ondansetron HCl [Zofran] 4 mg PO Q6H PRN PRN 5 Days #20 tab 10/24/19 Oxycodone [Oxyir] 5 mg PO Q4H PRN PRN #60 tablet 10/24/19 The following prescriptions were given: Apixaban [Eliquis] 2.5 mg PO BID #30 tab Transmission Status: Pending to [facility] Cephalexin [Keflex] 1,000 mg PO Q8 #4 cap Transmission Status: Pending to [facility] Oxycodone [Oxyir] 5 mg PO Q4H PRN PRN #60 tablet PRN Reason: Pain Score 6-10/10 Transmission Status: Sent to [facility] Acetaminophen [Tylenol Extra Strength] 1,000 mg PO Q6H PRN #100 tab Transmission Status: Pending to [facility] Ondansetron HCl [Zofran] 4 mg PO Q6H PRN PRN 5 Days #20 tab PRN Reason: Nausea Transmission Status: Pending to [facility] Orders to be completed after discharge: CORONAVIRUS 19, ALEX Time Frame: 10/23/19, Facility: [facility], Location: Laboratory Primary Care Physician: Alex Clement MD [Primary Care Provider] - Test Results: Test results from this visit will be discussed in further detail at your follow- up appointment, if applicable. Please Follow Up With: Raul Meneses DO - 2 weeks
--- NOTE | 2019-10-24 13:59 | OP.PCM_ITS ---
Report of Operation Date of Procedure: 10/24/19 Description of Surgical Findings:: Preoperative diagnosis: Right knee DJD Postoperative diagnosis: Same Procedure: Right total knee arthroplasty CT guided Robotic Assisted Implant: Candice triathlon press fit femoral component size 3, press-fit tibial baseplate size 4, press fit asymmetric patella size 32, polyethylene X3 size 9 CS Anesthesia: Spinal with adductor canal block Tourniquet time: 17 minutes at 300 mmHg Complications: None Condition: Stable to PACU Estimated blood loss: 150 cc Indication for procedure: This is a 69-year-old female with long standing degenerative joint disease of the knee with flexion contracture who has failed conservative treatment and wished to proceed with elective total knee arthroplasty. Risk benefits and alternatives were reviewed including; risk of bleeding, infection, nerve artery and tissue damage, continued pain, postoperative stiffness, venous thromboembolism, need for postoperative rehabilitation, mechanical feel to the knee, and expected postoperative course. The operative CT and templating was performed with component sizing Procedure: The patient was met in the preoperative holding area. The operative extremity was identified by both patient and physician and was marked. Patient was met by anesthesia. An adductor canal block was placed by anesthesia postoperatively the patient was brought back to the operating room on a wheeled cart and transferred to the operating table in the supine position. Anesthesia was started. A well-padded tourniquet was placed on the operative extremity. The patient was prepped and draped in the usual sterile fashion. A timeout was called to ensure the proper patient procedure and extremity were being contemplated. An Esmarch was used to exsanguinate the extremity. The tourniquet was inflated. A 10 blade scalpel was used to make a midline incision down through the skin and subcutaneous tissue. Skin retractors placed. Bovie was used to perform meticulous hemostasis. full-thickness flaps were elevated medial and lateral along the joint capsule. A deep blade scalpel was used to perform a medial parapatellar arthrotomy. The knee was brought to full extension. A Bovie was used to release the soft tissues off the most proximal aspect of the medial tibial plateau a three-quarter inch curved osteotome was also used for this process. The infrapatellar fat pad was excised. The fat pad was excised partially anterior lateral portion the anterior medial was elevated from the femur. At this point our intra-articular femoral array was placed of a 45 degree angle proximal and posterior to the medial epicondyle. Our tibial array was placed greater than 1 hands breath below the incision at a 20 degree angle stab incisions were used for this case were attached and checked with the robotic software. Tourniquet was let down. At this point registration stringer were taken throughout the knee as well as checkpoints placed in the femur and tibia once the knee was registered then tensioned the medial and lateral ligaments in extension and 90 degrees of flexion. We then used these numbers to adjust our components within parameters to balance the knee in both flexion and extension once this was done on our monitor we then proceeded with using the robotic arm to make our tibial plateau cut and anterior posterior and chamfer cuts on the femur we then trialed and achieved the desired plan with a well- balanced knee. Lug holes were drilled in the femur the tibia preparation was completed with a fin punch and the patella was prepared by first using a caliper to ensure sufficient bone stock and a patellar reamer to remove the desired a mount of bone locals were drilled for an asymmetric poly-. We then brought the knee through range of motion with excellent patellar tracking. We thoroughly irrigated the knee with a trial components were removed a posterior capsular injection with her standard cocktail was performed the aqua Mantis was also used to aid in hemostasis. Betadine rinse was allowed to sit and washed out components were press-fit into place. Aricept rinse was then used followed by several more rate liters of irrigation after it was allowed to sit. Joint capsule was closed with #1 Ethibond [id number] followed by Vicryl in the subcutaneous tissues staple in the skin arrays and checkpoints were removed prior to closure all counts were correct stab incisions were closed with a stable standard dressing in the form of Mepilex for the main incision Xeroform 4 x 4 and Tegaderm over pin site holes. Thigh-high SAMANTHA hose applied over top of dressing. Patient tolerated the procedure well she was directed to PACU in stable condition no intraoperative complications
--- NOTE | 2019-10-24 14:24 | RAD_ITS ---
STUDY: X-RAY - RIGHT KNEE REASON FOR EXAM: Female, 69 years old. POST OP RIGHT TOTAL KNEE TECHNIQUE: AP and lateral view(s) of the knee. COMPARISON: Comparison is made with prior study dated July 27, 2019. FINDINGS: Normal visualized distal femur. Normal visualized proximal tibia and fibula. Normal proximal tibiofibular articulation. The patient is status post total knee replacement. There is good alignment. Postoperative soft tissue changes. RAD/Knee 1 or 2 Views IMPRESSION: Status post total knee replacement. There is good alignment. Postoperative soft tissue changes. Electronically Signed: Cal De Los Santos, at 15:16 EDT , Service support ,
[2019-10-24] MEDS: Cefazolin 1 GM/50 ML BAG IV (14:25)
[2019-10-24] MEDS: oxyCODONE 5 MG Tablet PO (16:02)
== END 2019-10-24 18:15 | disposition home or self-care (01) ==
LOC: SDC 08:20 → AC 08:20
PROVIDERS: Anesthesiology; PCP Family Medicine; Referring Provider Orthopaedic Surgery; Visit Provider Orthopaedic Surgery
PROC: 0SRC0JZ Replacement of Right Knee Joint with Synthetic Substitute, Open Approach (ICD-10-PCS; CPT 27447; principal; 2019-10-24 10:00)
DX: M17.11 Unilateral primary osteoarthritis, right knee (principal); I44.7 Left bundle-branch block, unspecified; I10 Essential (primary) hypertension; E78.00 Pure hypercholesterolemia, unspecified; Z79.899 Other long term (current) drug therapy; Z11.59 Encounter for screening for other viral diseases
CPT/HCPCS: 01402; 27447; 64447; 36415; 73560; 80048; 82962; 83735; 84132; 85025; 85610; 85730; 86850; 86900; 86901; 87081; 87635; 93005; 97162; C1776; G2023; J7120; J0702; J2405; J3490; U0003

== ENCOUNTER → 2020-01-15 08:18 | Outpatient (CLI) | payer OTHER, SELFPAY ==
[2020-01-15 08:09] VITALS: BMI 32.9
--- NOTE | 2020-01-15 08:19 | RAD_ITS ---
STUDY: X-RAY - RIGHT KNEE REASON FOR EXAM: Female, 69 years old. POST OP FOLLOW UP X 2 MONTHS TECHNIQUE: 4 view(s) of the knee. COMPARISON: Comparison is made with prior examination dated 10/24/2019. FINDINGS: Normal visualized distal femur. Normal visualized proximal tibia and fibula. Normal proximal tibiofibular articulation. The patient is status post right total knee replacement. There is good alignment. Small residual joint effusion and soft tissue swelling. RAD/Knee 4 or More Views IMPRESSION: Status post right total knee replacement. There is good alignment. Mild residual soft tissue swelling and joint effusion. Electronically Signed: Cal De Los Santos, at 10:48 EDT , Service support ,
== END ==
PROVIDERS: PCP Family Medicine; Referring Provider Orthopaedic Surgery; Visit Provider Orthopaedic Surgery
DX: Z96.651 Presence of right artificial knee joint (principal)
CPT/HCPCS: 73564

== ENCOUNTER 2023-09-09 17:30 | Outpatient (RCR) | payer SELFPAY | END 2023-09-14 23:59 | LOC: NS 17:30 | PROVIDERS: PCP Family Medicine | DX: Z71.3 Dietary counseling and surveillance (principal) ==